=== PATIENT | female | born 2000 | race Asian ===

== ENCOUNTER 2023-10-20 19:49 | Inpatient (IN) ==
--- NOTE | 2023-10-20 20:57 | Emergency Department Note ---
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 She believes that she has undiagnosed ADHD and bipolar. She has trouble focusing on things. She has trouble sleeping. She is only slept 2 hours in the past 48. Prior to that she had slept about 5 hours. She denies any headache or change in vision. No chest pain or shortness of breath. She denies any auditory hallucinations but notes that she does talk to herself sometimes intentionally has done this all of her life. She is getting work done and meeting the requirements per the [employer] Additional history was obtained by her professor at bedside who confirms that she is getting her materials done for school. She does believe that sometimes life is cyclical and does not know if it is worth living. She currently denies any thoughts when to harm yourself or harm anyone else. ADDITIONAL HISTORY OBTAINED: Per HPI Chronic Medical/Social Conditions Affecting Care: Per HPI PAST MEDICAL HISTORY:See Below PAST SURGICAL HISTORY:See Below FAMILY HISTORY:See Below SOCIAL HISTORY:See Below HOME MEDICATIONS:See Below ALLERGIES:See Below VITALS:See Below PHYSICAL EXAMINATION: GENERAL: Sitting up in bed, alert, well appearing, well nourished, no distress, non-toxic EYE EXAM: normal conjunctiva. PERRL and EOM's grossly intact. OROPHARYNX:mucous membranes are moist NECK: supple, no nuchal rigidity, no adenopathy, non-tender LUNGS: Clear to auscultation. Normal chest wall mechanics HEART: no murmurs, S1 normal and S2 normal ABDOMEN: abdomen soft, non-tender, normo-active bowel sounds, no masses, no rebound or guarding. BACK: Back is symmetrical on inspection and there is no deformity, no midline tenderness, no CVA tenderness. SKIN: no rashes and no bruising UPPER EXTREMITIES: upper extremities are grossly normal. LOWER EXTREMITIES: No pitting edema. NEURO EXAM: Normal sensorium, cranial nerves II-XII grossly intact, normal speech, no gross weakness of arms, no gross weakness of legs. PSYCH: Denies any suicidal or homicidal ideations but admits to racing thoughts and trouble sleeping. She does admit to completing task at home MEDICAL DECISION MAKING: Patient is a 23-year-old female who presents ER for feeling manic. She notes that she was concerned so consequently came in. Did discuss the patient with the psychiatric pet care worker who was present at bedside professor is present at bedside and assist with history. Blood work was obtained and showed mild leukocytosis 15,000. No significant anemia. BMP along with LFTs bilirubin and TSH was unremarkable. Salicylate acetaminophen and alcohol were negative. Viral panel was negative. Patient admits to racing thoughts. She is having trouble sleeping. She feels as though sometimes life is not worth living. Currently denies any suicidal or homicidal ideations. She is talking with family as well as her professor trying to decide whether she wants to come in or not. No clear grounds for 302 at this time. Patient was signed out to Dr. Ware at change of shift awaiting complete evaluation by her psychiatric care managers. External Records Reviewed: None Consults/Care Managements Discussions: Per [facility] Triage Nursing notes reviewed. Limited review of prior medical records performed Vital Signs: reviewed and remarkable for no significant abnormalities Differential diagnosis: Mood disorder, infection, hypoglycemia, electrolyte abnormalities, cardiac sources, intracerebral event, toxicologic, trauma, neurologic, as well as other pathologies. ER treatment provided: See below Diagnostics interpreted by me include EKG and cardiac monitoring as listed below: -ECG: none -Laboratory studies:Interpreted by me as stated above in MDM and shown below. Imaging studies: Xrays: As interpreted by me:none CTs show: none Procedures:none Critical Care: None Past Med/Surg History Medical History No pertinent past medical history Social History Smoking Status: Never smoker Feels Safe at Home: Hesitant to Answer Gender Identity: Female Results & Data (ED) Vital Signs Vital Signs - 24 hr 10/20/23 19:56 Temperature 36.1 C L Temperature Source Temporal Artery Scan Pulse Rate 88 Respiratory Rate 16 Respiratory Effort / Characteristics Non-Labored Spontaneous Respiratory Depth Normal Blood Pressure 135/95 Blood Pressure Mean 108 Blood Pressure Position Sitting Pulse Oximetry 97 Oxygen Delivery Method Room Air Sepsis Recent Fever Within 48 Hours No Sepsis New/Unexplained Change in Mental Status N/A Sepsis Action Taken by Nursing No Action Required Laboratory Data 10/20/23 20:34 10/20/23 20:34 Lab Results 10/20/23 Range/Units 20:34 WBC 15.58 H (4.8-10.8) K/ul RBC 4.83 (4.20-5.40) M/uL Hgb 14.3 (12.0-16.0) g/dl Hct 42.1 (37.0-47.0) % MCV 87.2 (80.0-100.0) fL MCH 29.6 (25.0-34.0) pg MCHC 34.0 (32.0-36.0) g/dL RDW Std Deviation 38.5 (36.4-46.3) fL RDW Coeff of Divine 12.1 (11.5-14.5) % Plt Count 388 (130-400) K/uL MPV 9.1 L (9.4-12.4) fL Immature Gran % (Auto) 0.6 % Neut % (Auto) 74.9 % Lymph % (Auto) 17.0 % [place] % (Auto) 6.8 % Eos % (Auto) 0.3 % Baso % (Auto) 0.4 % Neut # (Auto) 11.67 H (1.40-6.50) K/uL Lymph # (Auto) 2.65 (1.20-3.40) K/uL [place] # (Auto) 1.06 H (0.11-0.59) K/uL Eos # (Auto) 0.05 (0.00-0.50) K/uL Baso # (Auto) 0.06 (0.00-0.20) K/uL Immature Gran # (Auto) 0.09 (0.01-0.20) K/uL Sodium 139 (136-145) mmol/L Potassium 3.6 (3.5-5.1) mmol/L Chloride 107 (98-107) mmol/L Carbon Dioxide 24 (21-32) mmol/L Anion Gap 8 (3-11) BUN 12 (6-23) mg/dl Creatinine 0.65 (0.6-1.2) mg/dl Est Cr Clr Drug Dosing 130.9 ml/min Est GFR ( Amer) 145.0 ml/min Est GFR (Non-Af Amer) 125.1 ml/min BUN/Creatinine Ratio 18.5 (10-20) Glucose 105 H (70-99(Fasting)) mg/dl Calcium 9.6 (8.6-10.3) mg/dl Total Bilirubin 0.3 (0.2-1.0) mg/dl AST 15 (13-39) U/L ALT 6 L (7-52) U/L Alkaline Phosphatase 61 (34-104) U/L Total Protein 8.2 (6.0-8.3) gm/dl Albumin 4.7 (3.4-5.0) gm/dl Globulin 3.5 (2.5-4.0) gm/dl Albumin/Globulin Ratio 1.3 (0.9-2) TSH 2.952 (0.300-4.500) uIu/ml Salicylates < 3.0 L (3.0-30) mg/dl Acetaminophen < 3 L (10-30) ug/ml Ethyl Alcohol mg/dL < 10.0 (<10.0) mg/dl Adenovirus (PCR) Not Detected (NotDetected) B. pertussis DNA (PCR) Not Detected (NotDetected) B.parapertussis DNA PCR Not Detected (NotDetected) C. pneumoniae DNA (PCR) Not Detected (NotDetected) Coronavirus OC43 (PCR) Not Detected (NotDetected) Coronavirus HKU1 (PCR) Not Detected (NotDetected) Coronavirus 229E (PCR) Not Detected (NotDetected) SARS-CoV-2 (PCR) Not Detected (NotDetected) Coronavirus NL63 (PCR) Not Detected (NotDetected) Human Metapneumovir PCR Not Detected (NotDetected) Influenza Type A (PCR) Not Detected (NotDetected) Influenza Type B (PCR) Not Detected (NotDetected) M. pneumoniae (PCR) Not Detected (NotDetected) Parainfluenza 1 (PCR) Not Detected (NotDetected) Parainfluenza 2 (PCR) Not Detected (NotDetected) Parainfluenza 3 (PCR) Not Detected (NotDetected) Parainfluenza 4 (PCR) Not Detected (NotDetected) RSV (PCR) Not Detected (NotDetected) Entero/Rhino (PCR) Not Detected (NotDetected) Discharge Plan Visit Data Chief Complaint: Mental Health Evaluation Stated Complaint: Mental Health Evaluation ED Provider: Elias Tovar Discharge Problem: Mood disorder Forms Stand Alone Forms: [facility], Suicide Prevention Resources Referrals [facility] [Primary Care Provider] -
[2023-10-20 21:06] LABS: Albumin Globulin Ratio 1.3 (0.9-2); Albumin Level 4.7 gm/dl (3.4-5.0); BUN Creatinine Ratio 18.5 (10-20); Bilirubin,Total 0.3 mg/dl (0.2-1.0); Calcium 9.6 mg/dl (8.6-10.3); Creatinine Clr Calc Pharmacy 130.9 ml/min; Est GFR (Non-African American) 125.1 ml/min; Globulin 3.5 gm/dl (2.5-4.0); Potassium 3.6 mmol/L (3.5-5.1); Total Protein 8.2 gm/dl (6.0-8.3)
[2023-10-20 21:12] LABS: Basophils # (auto) 0.06 K/uL (0.00-0.20); Basophils % (auto) 0.4 %; Eosinophils # (auto) 0.05 K/uL (0.00-0.50); Eosinophils % (auto) 0.3 %; Hematocrit (blood only) 42.1 % (37.0-47.0); Hemoglobin 14.3 g/dl (12.0-16.0); Immature Granulocytes # (auto) 0.09 K/uL (0.01-0.20); Immature Granulocytes % (auto) 0.6 %; Lymphocytes # (auto) 2.65 K/uL (1.20-3.40); Mean Corpuscular Hemoglobin 29.6 pg (25.0-34.0); Mean Corpuscular Volume 87.2 fL (80.0-100.0); Mean Platelet Volume 9.1 fL (9.4-12.4); Monocytes # (auto) 1.06 K/uL (0.11-0.59); Monocytes % (auto) 6.8 %; Neutrophils # (auto) 11.67 K/uL (1.40-6.50); Neutrophils % (auto) 74.9 %; Platelet Count 388 K/uL (130-400); RDW Coefficient of Variation 12.1 % (11.5-14.5); RDW Standard Deviation 38.5 fL (36.4-46.3); Red Blood Count 4.83 M/uL (4.20-5.40); White Blood Count 15.58 K/ul (4.8-10.8)
[2023-10-20 21:18] LABS: Acetaminophen < 3 ug/ml (10-30); Salicylate < 3.0 mg/dl (3.0-30)
[2023-10-20 21:21] LABS: Thyroid Stimulating Hormone 2.952 uIu/ml (0.300-4.500)
[2023-10-20 21:43] LABS: Adenovirus PCR Not Detected (NotDetected); Bordetella parapertussis PCR Not Detected (NotDetected); Bordetella pertussis PCR Not Detected (NotDetected); Chlamydia pneumoniae PCR Not Detected (NotDetected); Coronavirus 229E PCR Not Detected (NotDetected); Coronavirus CoV-2 (COVID19)PCR Not Detected (NotDetected); Coronavirus HKU1 PCR Not Detected (NotDetected); Coronavirus NL63 PCR Not Detected (NotDetected); Coronavirus OC43PCR Not Detected (NotDetected); Human Metapneumovirus PCR Not Detected (NotDetected); Influenza A PCR Not Detected (NotDetected); Influenza B PCR Not Detected (NotDetected); Mycoplasma pneumoniae PCR Not Detected (NotDetected); Parainfluenza Virus 1 PCR Not Detected (NotDetected); Parainfluenza Virus 2 PCR Not Detected (NotDetected); Parainfluenza Virus 3 PCR Not Detected (NotDetected); Parainfluenza Virus 4 PCR Not Detected (NotDetected); Respiratory Syncytial VirusPCR Not Detected (NotDetected); Rhinovirus/Enterovirus PCR Not Detected (NotDetected)
[2023-10-21 00:18] LABS: Appearance Urine Clear (Clear); Bilirubin Urine Negative (Negative); Blood Urine Negative (Negative); Color Urine Yellow; Glucose Urine UA Negative (Negative); Ketones Urine Trace (Negative); Leukocyte Esterase Urine Negative (Negative); Nitrite Urine Negative (Negative); Protein Urine Negative (Negative); Specific Gravity Urine 1.033 (1.000-1.030); Urobilinogen Urine Negative (Negative); pH Urine 5.5 (4.5-7.5)
[2023-10-21 00:38] LABS: Amphetamines+Metham, Urine Neg (Neg); Barbiturates, Urine Neg (Neg); Benzodiazepine, Urine Neg (Neg); Cocaine, Urine Neg (Neg); MDMA (Ecstacy), Urine Neg (Neg); Marijuana, Urine Neg (Neg); Methadone, Urine Neg (Neg); Opiate, Urine Neg (Neg); Phencyclidine, Urine Neg (Neg)
[2023-10-21] MEDS ORDERED: ACETAMINOPHEN 325 MG TAB PO PRN (03:03)
[2023-10-21] MEDS ORDERED: ALUMINUM/MAGNESIUM SUSP 30 ML UDC PO PRN (03:03)
[2023-10-21] MEDS ORDERED: SODIUM CHLORIDE 0.65% NA SOLN 45 ML (OCEAN) PRN (03:03)
[2023-10-21] MEDS ORDERED: BISMUTH SUBSALICYLATE LIQD 236 ML PO PRN (03:03)
[2023-10-21] MEDS ORDERED: hydrOXYzine HCl 25 MG TAB PO PRN (03:03)
[2023-10-21] MEDS ORDERED: MAGNESIUM HYDROXIDE SUSP 30 ML UDC PO PRN (03:03)
[2023-10-21] MEDS ORDERED: QUEtiapine FUMARATE 25 MG TABLET PO ONE (03:06)
[2023-10-21] MEDS: QUEtiapine FUMARATE 25 MG TABLET PO PRN (08:46)
--- NOTE | 2023-10-21 12:09 | History & Physical ---
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 There appears to be no previous history suggestive of gabe prior to this episode. She is certainly psychotic and I can't entirely rule out a primary psychotic disorder, but the presentation is very consistent with severe gabe with psychotic features. She presented seeking treatment for self-diagnosed bipolar disorder and appears at the time she signed herself in to have the capacity to make a rational and informed decision about admission. With the subsequent degree of escalation, this may no longer be the case. If she were to demand discharge at this time she would in my opinion clearly meet criteria for section 302 involuntary emergency psychiatric admission. Will start divalproex as mood stabilizer likely to be appropriate over the chcf, titrate to 1,500 mg/day before checking trough level and further adjustment as needed to achieve blood level in 85-125 ug/mL range. In light of clear need for faster-onset mood stabilization with start risperidone ODT 1 mg TID. Due to evidence of rapid escalation, will provide IM haloperidol 5 mg, lorazepam 2 mg, and diphenhydramine 50 mg Q6H PRN psychosis or gabe. Overall I spent a total of 78 minutes on the floor for this admission including review of chart records, review of test results, direct evaluation of the patient [id number], reconciling and ordering medication, risk assessment, discussion during interdisciplinary treatment rounds, and documentation in the electronic health record. (1) Bipolar disorder, current episode manic, severe with psychotic features: Plan The patient was admitted to the [facility] ([facility] unit) on q15 minute checks (behavioral with suicide precautions) for safety.The patient will participate in group, recreational, and milieu therapies and will be offered additional individual and family sessions as clinically appropriate. * A private room is medically necessary for the safety of self and others. * start divalproex 500 mg once today, BID tomorrow, TID following day * start risperidone ODT 1 mg TID * for gabe or psychosis haloperidol 5 mg IM, lorazepam 2 mg IM, and diphenhydramine 50 mg IM Q6H PRN gabe or psychosis Inventory Assets Strengths: has local supports, voluntary, attending classes Needs: safety and stabilization, medication adjustment, additional coping skills, increased outpatient services Suicide Risk Level Suicide Risk Level: High-Moderate (q15 min suicide checks) (no suicidal thoughts reported but very manic with psychosis, poor impulse control, psychomotor agitation) Risk Factors Assessment Male: No : No Do You Have Access To A Gun?: No Health Problems: No Mental Health Diagnoses: Yes Previous Attempt: No Previous Psychiatric Hospitalization: No Protective Factors Assessment : No Responsible for Young Children: No Employed: No Psychiatric History Identifying Data BRIELLE ORTIZ is a 23-year-old F who currently lives in [place] alone, has a history of depression, and was admitted on 10/21/23 02:24 on a 201 voluntary commitment for gabe. Chief Complaint "Are you Professor Arriaza?". 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 She believes that she has undiagnosed ADHD and bipolar. She has trouble focusing on things. She has trouble sleeping. She is only slept 2 hours in the past 48. Prior to that she had slept about 5 hours. She denies any headache or change in vision. No chest pain or shortness of breath. She denies any auditory hallucinations but notes that she does talk to herself sometimes intentionally has done this all of her life. She is getting work done and meeting the requirements per the [employer]. Additional history was obtained by her professor at bedside who confirms that she is getting her materials done for school. She does believe that sometimes life is cyclical and does not know if it is worth living. She currently denies any thoughts when to harm yourself or harm anyone else." the following notes by the ED psychiatric patient case coordinator: "Pt denies SI. States she had thoughts tonight that in the broader context of the universe it would not matter if she lived or . Pt denied any intent or plan behind these thoughts. States she feels as though she is undiagnosed with ADHD and Bipolar Disorder. Reports inconsistent sleep the past few days, with two or three hours yesterday and four or five hours the day before that. Pt endorses racing thoughts and photo sensitivity which has increased her stress. Pt is mildly tangential. 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 Advisor states she has been keeping up with her responsibilities." "Met with pt to complete MH assessment. Pt requests her PhD advisor, José Luis, stay in the room. Pt remains somewhat tangential with flight of ideas. Pt required some redirection to answer questions appropriately but stayed pleasant and cooperative throughout. Pt states she does experience rare SI that typically follows coming off a high period. She frequently strays off topic to discuss AI singularities, connections, and patterns in the Universe. Pt did ask this CM if I saw evidence of a singularity in her. Pt also stated that she believes she is so calm that her brain waves will mimic those of someone currently asleep. Pt also stated that she was having issues with photosensitivity and kept her eyes covered. However, later in the assessment pt was able to look at this CM without difficulty. Pt states that she was taking Lexapro until 2 days ago but stopped because she did not feel as though she needed it. Pts prescriber is in [place]. She denies self-injury. Denies HI. Denies AH/VH. Denies a history of inpatient treatment. Denies prior suicide attempts. 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 Pt willing for voluntary treatment (201). Lives in an apartment by herself off campus. Pt states to liaison she has active SI. Pt denies specific thoughts or plan. States she does not feel safe with herself at her apartment. States stressor is times where she is alone. Pt states having continuous SI but it "fluctuates." Pt denying SIB/HI/halluc/delus. Reports SIB in past like cutting and hitting self but has not done so in past 1+ year. Grandiose and manic behaviors. Pt. having racing thoughts. Tangential and flight of ideas. Asking questions about the universe. Often needs redirection when answering questions. Pleasant and cooperative during conversation. Denies previous inpt stays. Stopped taking Lexapro 2 days ago. Lexapro 5mg po daily. Prescriber in [place]. Pt unable to state if she is taking other medications. Pt hinted about taking vitamins but couldn't state which ones. Pt denies hx of medical diagnoses. Denies psych diagnoses but thinks she has undiagnosed ADHD and Bipolar. States sleep has been poor. Appetite has been less but adequate. Denies tobacco, alcohol, other substance use. Denies legal issues. Denies access to firearms/lethal weapons. ROIs signed for Hudson (mother), Nini (father), Royer (aunt), and S." Review of the medical record reveals no previous or outside psychiatric records. Review of pertinent labs reveals they are noncontributory except for leukocytosis. A urine toxicology screen was negative for all tested substrates. BAL was <10 mg/dL. screen was negative. Note history as documented above. Pt is (apparently recently) diagnosed with bipolar disorder, with a history of treatment for major depression (escitalopra m) that she stopped 2 days prior to presentation. She has had increasingly racing thoughts, decreased sleep of 3-5 hours/night. Since presentation to the ED she has become increasingly manic with rapid speech, flight of ideas, and psychomotor agitation. She has been preoccupied with "portals" and has identified as such a toilet (which she blocked with an entire roll of toilet paper) and a mirror (which she was pounding with her hands at the time I tried to assess her). She called 911 on the unit phone to ask them to put her in touch with the prophet Luis. She stripped off all her clothes several times. Because of her rapidly-escalating gabe and the risk of injury from her pounding on the mirror that she believed was a portal, she was offered haloperidol 10 mg IM with lorazepam 2 mg IM and diphenhydramine 50 mg IM. She enthusiastically accepted this and readily went to the open-door quiet room and curled up on the mattress. She rapidly became drowsy and repeatedly asked if I were Professor Arriaza. As a result of this sedation, my assessment was abbreviated. Past Psychiatric History Current Psychiatric Diagnosis: SHERWIN Outpatient Services: had been taking escitalopram prescribed by psychiatrist in [place] Previous Psych Admissions: none Do You Have Access To A Gun?: No History of Previous Suicide Attempt: No Past Medication Trials: escitalopram Allergies Allergy/AdvReac Type Severity Reaction Status Date / Time No Known Allergies Allergy Unverified 10/21/23 01:13 Home Medications Medication Instructions Recorded Confirmed Type escitalopram oxalate 5 mg tablet 5 mg PO DAILY 10/21/23 10/21/23 History (Lexapro) Family History Family History of: Suicide Completion Family Mental Health History Comment: Aunt Alcohol History Hx of Alcohol Use Over the Past 12 Months: No AUDIT Total Score: 0 Smoking Use Have You Smoked or Used Tobacco Products in the Last 30 Days: No Smoking Status: Never smoker Substance History Hx of Prescription Med Misuse Over the Past 12 Months: No Hx of Over the Counter Med Misuse Over the Past 12 Months: No Hx of Inhalent Misuse Over the Past 12 Months: No Hx of Organic Substance Use Over the Past 12 Months: No Hx of Illegal Substances/Street Drug Use Over Past 12 Months: No Problems as a Result of Past Substance Use: None Identified Personal History Living Arrangements: Apartment Beliefs That Will Affect Care: None Patient History Medical History (Updated 10/21/23 @ 20:15 by Mckinley Seay MD) Bipolar disorder, current episode manic, severe with psychotic features No pertinent past medical history Social History Smoking Status: Never smoker Communication Ability: Effective Automatic Cigar Wrapper Tender Required: No Beliefs That Will Affect Care: None Feels Safe at Home: Hesitant to Answer Gender Identity: Female Assistive Devices: Glasses Physical Exam Psychiatric: At the time I began my assessment, pt was pacing her room stripping off her clothes and saying that her mirror was a portal while pounding it with her fists. She responded to her name but her responses to orientation questions were nonsensical. Because of the escalating injury risk she was given IM medication (which she was very happy to take) and rapidly became sedated. Vital Signs (Past 24 Hours): Last Vital Signs Temp 36.6 C 10/21/23 03:50 Pulse 89 10/21/23 03:50 Resp 18 10/21/23 03:50 BP 128/87 10/21/23 03:50 Pulse Ox 98 10/21/23 03:50 O2 Del Method Room Air 10/21/23 03:50 Results & Data ([facility]) Laboratory Results Laboratory Results - last 24 hr 10/20/23 10/21/23 10/21/23 20:34 00:12 00:34 WBC 15.58 H RBC 4.83 Hgb 14.3 Hct 42.1 MCV 87.2 MCH 29.6 MCHC 34.0 RDW Std Deviation 38.5 RDW Coeff of Divine 12.1 Plt Count 388 MPV 9.1 L Immature Gran % (Auto) 0.6 Neut % (Auto) 74.9 Lymph % (Auto) 17.0 [place] % (Auto) 6.8 Eos % (Auto) 0.3 Baso % (Auto) 0.4 Neut # (Auto) 11.67 H Lymph # (Auto) 2.65 [place] # (Auto) 1.06 H Eos # (Auto) 0.05 Baso # (Auto) 0.06 Immature Gran # (Auto) 0.09 Sodium 139 Potassium 3.6 Chloride 107 Carbon Dioxide 24 Anion Gap 8 BUN 12 Creatinine 0.65 Est Cr Clr Drug Dosing 130.9 Est GFR ( Amer) 145.0 Est GFR (Non-Af Amer) 125.1 BUN/Creatinine Ratio 18.5 Glucose 105 H Calcium 9.6 Total Bilirubin 0.3 AST 15 ALT 6 L Alkaline Phosphatase 61 Total Protein 8.2 Albumin 4.7 Globulin 3.5 Albumin/Globulin Ratio 1.3 TSH 2.952 Urine Color Yellow Urine Appearance Clear Urine pH 5.5 Ur Specific [place] 1.033 H Urine Protein Negative Urine Glucose (UA) Negative Urine Ketones Trace H Urine Blood Negative Urine Nitrite Negative Urine Bilirubin Negative Urine Urobilinogen Negative Ur Leukocyte Esterase Negative POC Ur Test Salicylates < 3.0 L Urine Opiates Screen Neg Ur Methadone, Qual Neg Acetaminophen < 3 L Urine Barbiturates Neg Ur Phencyclidine (PCP) Neg U Amphetamin/Meth Scrn Neg MDMA (Ecstasy) Screen Neg U Benzodiazepines Scrn Neg Ur Cocaine Metabolite Neg U Marijuana (THC) Screen Neg Ethyl Alcohol mg/dL < 10.0 Adenovirus (PCR) Not Detected B. pertussis DNA (PCR) Not Detected B.parapertussis DNA PCR Not Detected C. pneumoniae DNA (PCR) Not Detected Coronavirus OC43 (PCR) Not Detected Coronavirus HKU1 (PCR) Not Detected Coronavirus 229E (PCR) Not Detected SARS-CoV-2 (PCR) Not Detected Coronavirus NL63 (PCR) Not Detected Human Metapneumovir PCR Not Detected Influenza Type A (PCR) Not Detected Influenza Type B (PCR) Not Detected M. pneumoniae (PCR) Not Detected Parainfluenza 1 (PCR) Not Detected Parainfluenza 2 (PCR) Not Detected Parainfluenza 3 (PCR) Not Detected Parainfluenza 4 (PCR) Not Detected RSV (PCR) Not Detected Entero/Rhino (PCR) Not Detected SARS-CoV-2, RNA, NAAT NEGATIVE 10/21/23 00:36 WBC RBC Hgb Hct MCV MCH MCHC RDW Std Deviation RDW Coeff of Divine Plt Count MPV Immature Gran % (Auto) Neut % (Auto) Lymph % (Auto) [place] % (Auto) Eos % (Auto) Baso % (Auto) Neut # (Auto) Lymph # (Auto) [place] # (Auto) Eos # (Auto) Baso # (Auto) Immature Gran # (Auto) Sodium Potassium Chloride Carbon Dioxide Anion Gap BUN Creatinine Est Cr Clr Drug Dosing Est GFR ( Amer) Est GFR (Non-Af Amer) BUN/Creatinine Ratio Glucose Calcium Total Bilirubin AST ALT Alkaline Phosphatase Total Protein Albumin Globulin Albumin/Globulin Ratio TSH Urine Color Urine Appearance Urine pH Ur Specific [place] Urine Protein Urine Glucose (UA) Urine Ketones Urine Blood Urine Nitrite Urine Bilirubin Urine Urobilinogen Ur Leukocyte Esterase POC Ur Test NEG Salicylates Urine Opiates Screen Ur Methadone, Qual Acetaminophen Urine Barbiturates Ur Phencyclidine (PCP) U Amphetamin/Meth Scrn MDMA (Ecstasy) Screen U Benzodiazepines Scrn Ur Cocaine Metabolite U Marijuana (THC) Screen Ethyl Alcohol mg/dL Adenovirus (PCR) B. pertussis DNA (PCR) B.parapertussis DNA PCR C. pneumoniae DNA (PCR) Coronavirus OC43 (PCR) Coronavirus HKU1 (PCR) Coronavirus 229E (PCR) SARS-CoV-2 (PCR) Coronavirus NL63 (PCR) Human Metapneumovir PCR Influenza Type A (PCR) Influenza Type B (PCR) M. pneumoniae (PCR) Parainfluenza 1 (PCR) Parainfluenza 2 (PCR) Parainfluenza 3 (PCR) Parainfluenza 4 (PCR) RSV (PCR) Entero/Rhino (PCR) SARS-CoV-2, RNA, NAAT Current Inpatient Medications Current Inpatient Medications: Current Inpatient Medications Acetaminophen (Acetaminophen 325 Mg Tab) 650 mg PO Q4H PRN PRN Reason: Headache or Minor Fever Stop: 11/20/23 03:02 Al Hydrox/Mg Hydrox/Simethicone (Aluminum/Magnesium Susp 30 Ml Udc) 30 ml PO Q4H PRN PRN Reason: GI Upset Stop: 11/20/23 03:02 Bismuth Subsalicylate (Bismuth Subsalicylate Liqd 236 Ml) 15 ml PO PRN PRN PRN Reason: Loose Stool Stop: 11/20/23 03:02 Hydroxyzine HCl (Hydroxyzine Hcl 25 Mg Tab) 50 mg PO HSZ PRN PRN Reason: Insomnia Stop: 11/20/23 03:02 Hydroxyzine HCl (Hydroxyzine Hcl 25 Mg Tab) 25 mg PO Q4H PRN PRN Reason: Anxiety Stop: 11/20/23 03:02 Magnesium Hydroxide (Magnesium Hydroxide Susp 30 Ml Udc) 30 ml PO DAILY PRN PRN Reason: Constipation Stop: 11/20/23 03:02 Quetiapine Fumarate (Quetiapine Fumarate 25 Mg Tablet) 50 mg PO Q6 PRN PRN Reason: gabe/psychosis Stop: 11/20/23 05:59 Last Admin: 10/21/23 08:46 Dose: 50 mg Sodium Chloride (Sodium Chloride 0.65% Na Soln 45 Ml ([place])) 1 - 2 sprays NA PRN PRN PRN Reason: Nasal Dryness/Congestion Stop: 11/20/23 03:02
[2023-10-21] MEDS ORDERED: HALOPERIDOL LACTATE 5 MG/ML 1 ML VIAL IM STA (14:01)
[2023-10-21] MEDS ORDERED: diphenhydrAMINE 50 MG/ML VIAL IM STA (14:02)
[2023-10-21] MEDS ORDERED: LORazepam 2 MG/1 ML VIAL IM STA (14:03)
[2023-10-21] MEDS ORDERED: diphenhydrAMINE 50 MG/ML VIAL IM PRN (20:22)
[2023-10-21] MEDS ORDERED: LORazepam 2 MG/1 ML VIAL IM PRN (20:22)
[2023-10-21] MEDS ORDERED: HALOPERIDOL LACTATE 5 MG/ML 1 ML VIAL IM PRN (20:22)
[2023-10-21] MEDS: DIVALPROEX DELAY RELEASE 500 MG TAB PO SCH (21:29)
[2023-10-22] MEDS: DIVALPROEX DELAY RELEASE 500 MG TAB PO SCH ×2 (10:24→20:26)
--- NOTE | 2023-10-22 13:56 | Psychiatric Progress Note ---
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 There appears to be no previous history suggestive of gabe prior to this episode. She is certainly psychotic and I can't entirely rule out a primary psychotic disorder, but the presentation is very consistent with severe gabe with psychotic features. She presented seeking treatment for self-diagnosed bipolar disorder and appears at the time she signed herself in to have the capacity to make a rational and informed decision about admission. With the subsequent degree of escalation, this may no longer be the case. If she were to demand discharge at this time she would in my opinion clearly meet criteria for section 302 involuntary emergency psychiatric admission. 10/22/2023: Slept much of the time since given IM medication yesterday afternoon. When awake, reported manic, grandiose delusions as well as less clearly-manic and more persecutory beliefs (e.g., in "portals" that somehow pose a risk and must be incapacitated). Initially refused ordered medication this morning but eventually did agree to take them. Tells me that she has had previous somewhat similar but less serious episodes of elevated mood, "jumping thoughts that go 1,000 miles an hour", impulsive behavior, and "masturbating in public" (which she commends as a useful intervention when distracted or anxious). 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 She acknowledges that some of her thoughts "have been crazy". Says her hesitation about medication is because she doesn't "want it all to be taken away". 10/21/2023: Will start divalproex as mood stabilizer likely to be appropriate over the vermin exterminator, titrate to 1,500 mg/day before checking trough level and further adjustment as needed to achieve blood level in 85-125 ug/mL range. In light of clear need for faster-onset mood stabilization with start risperidone ODT 1 mg TID. Due to evidence of rapid escalation, will provide IM haloperidol 5 mg, lorazepam 2 mg, and diphenhydramine 50 mg Q6H PRN psychosis or gabe. (1) Bipolar disorder, current episode manic, severe with psychotic features: Plan 10/22/2023: * A private room remains medically necessary for the safety of self and others. * increase divalproex to 500 mg BID today, TID tomorrow - started 10/21/2023 at 500 mg once daily * continue risperidone ODT 1 mg TID - started 10/21/2023 * for gabe or psychosis, continue haloperidol 5 mg IM, lorazepam 2 mg IM, and diphenhydramine 50 mg IM Q6H PRN gabe or psychosis 10/21/2023: The patient was admitted to the [facility] ([facility]) on q15 minute checks (behavioral with suicide precautions) for safety.The patient will participate in group, recreational, and milieu therapies and will be offered additional individual and family sessions as clinically appropriate. * A private room is medically necessary for the safety of self and others. * start divalproex 500 mg once today, BID tomorrow, TID following day * start risperidone ODT 1 mg TID * for gabe or psychosis haloperidol 5 mg IM, lorazepam 2 mg IM, and diphenhydramine 50 mg IM Q6H PRN gabe or psychosis Inventory Assets Strengths: has local supports, voluntary, attending classes Needs: safety and stabilization, medication adjustment, additional coping skills, increased outpatient services Suicide Risk Level Suicide Risk Level: High-Moderate (q15 min suicide checks) (no suicidal thoughts reported but very manic with psychosis, poor impulse control, psychomotor agitation) Risk Factors Assessment Male: No : No Do You Have Access To A Gun?: No Health Problems: No Mental Health Diagnoses: Yes Previous Attempt: No Previous Psychiatric Hospitalization: No Protective Factors Assessment : No Responsible for Young Children: No Employed: No Interval History Identifying Information BRIELLE ORTZI (ASTORIA) is a 23-year-old F who currently lives in [place] alone, has a history of depression, and was admitted on 10/21/23 02:24 on a 201 voluntary commitment for gabe. Chief Complaint "[]". Review of Systems Sleep Information Total Hours of Sleep: 11 Sleep Comments: Pt given PRN IM medications earlier in the day, awake x 2 and currently asleep in room Meal Information Percent Meal Consumed - Breakfast: 100 Percent Meal Consumed - Lunch: 90 Percent Meal Consumed - Dinner: 0 Nutrition Comment: pt asleep Subjective Subjective The patient was seen and assessed and interval progress reviewed in a multidisciplinary team meeting with the treatment team. For details, see the "Impression" section. Overall I spent a total of 48 minutes for this inpatient follow-up including review of chart records, direct evaluation of the patient [id number], counseling the patient, medication education with the patient, risk assessment, discussion during interdisciplinary treatment rounds, and documentation in the electronic health record. Physical Exam Vital Signs (Past 24 Hours) Last Vital Signs Temp 36.6 C 10/21/23 03:50 Pulse 89 10/21/23 03:50 Resp 18 10/21/23 03:50 BP 128/87 10/21/23 03:50 Pulse Ox 98 10/21/23 03:50 O2 Del Method Room Air 10/21/23 03:50 Results & Data (U) Current Inpatient Medications Current Inpatient Medications: Current Inpatient Medications Acetaminophen (Acetaminophen 325 Mg Tab) 650 mg PO Q4H PRN PRN Reason: Headache or Minor Fever Stop: 11/20/23 03:02 Al Hydrox/Mg Hydrox/Simethicone (Aluminum/Magnesium Susp 30 Ml Udc) 30 ml PO Q4H PRN PRN Reason: GI Upset Stop: 11/20/23 03:02 Bismuth Subsalicylate (Bismuth Subsalicylate Liqd 236 Ml) 15 ml PO PRN PRN PRN Reason: Loose Stool Stop: 11/20/23 03:02 Diphenhydramine HCl (Diphenhydramine 50 Mg/Ml Vial) 50 mg IM Q8 PRN PRN Reason: gabe Stop: 11/20/23 20:21 Divalproex Sodium (Divalproex Delay Release 500 Mg Tab) 500 mg PO BID LOVE Stop: 11/20/23 20:59 Last Admin: 10/22/23 10:24 Dose: 500 mg Haloperidol Lactate (Haloperidol Lactate 5 Mg/Ml 1 Ml Vial) 5 mg IM Q6 PRN PRN Reason: psychosis or gabe Stop: 11/20/23 20:21 Hydroxyzine HCl (Hydroxyzine Hcl 25 Mg Tab) 50 mg PO HSZ PRN PRN Reason: Insomnia Stop: 11/20/23 03:02 Hydroxyzine HCl (Hydroxyzine Hcl 25 Mg Tab) 25 mg PO Q4H PRN PRN Reason: Anxiety Stop: 11/20/23 03:02 Lorazepam (Lorazepam 2 Mg/1 Ml Vial) 2 mg IM Q6 PRN PRN Reason: gabe Stop: 11/20/23 20:21 Magnesium Hydroxide (Magnesium Hydroxide Susp 30 Ml Udc) 30 ml PO DAILY PRN PRN Reason: Constipation Stop: 11/20/23 03:02 Quetiapine Fumarate (Quetiapine Fumarate 25 Mg Tablet) 50 mg PO Q6 PRN PRN Reason: gabe/psychosis Stop: 11/20/23 05:59 Last Admin: 10/21/23 08:46 Dose: 50 mg Risperidone (Risperidone Odt 1mg) 1 mg PO TID LOVE Stop: 11/20/23 20:59 Last Admin: 10/22/23 10:24 Dose: 1 mg Sodium Chloride (Sodium Chloride 0.65% Na Soln 45 Ml ([place])) 1 - 2 sprays NA PRN PRN PRN Reason: Nasal Dryness/Congestion Stop: 11/20/23 03:02 Mental Health & Subst Abuse Tx Therapist Name of Therapist: ТАТЬЯНА Lung Splitter Name of Lung Splitter: Carol Cueva @ [facility]? Post Discharge Appointments Primary Care Physician Name Of Family Doctor/PCP: NAZARIO
[2023-10-23] MEDS: DIVALPROEX DELAY RELEASE 500 MG TAB PO SCH (08:33)
--- NOTE | 2023-10-23 10:40 | Psychiatric Progress Note ---
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 There appears to be no previous history suggestive of gabe prior to this episode. She is certainly psychotic and I can't entirely rule out a primary psychotic disorder, but the presentation is very consistent with severe gabe with psychotic features. She presented seeking treatment for self-diagnosed bipolar disorder and appears at the time she signed herself in to have the capacity to make a rational and informed decision about admission. With the subsequent degree of escalation, this may no longer be the case. Accumulating evidence suggestive of ADHD (running around classrooms as a kid) or ASD (hypersensitivity to light, certain sounds, "VOCs", use of masturbation when distressed. 10/23/2023: Substantial improvement. Pt has been speaking about feeling embarrassed about some of the things she did and said while more manic (oddly apologizing for calling a nurse "an sarah" and for asking me if I were "Dumbledore"). She slept 8 hours last night with no additional medication. Shortly before I saw pt today she inadvertently flooded the floor while showering. Staff are completely confident this was unintentional and resulted from her unfamiliarity with the shower layout. She was mortified and became very anxious and was given PRN quetiapine. Over the course of my exam she gradually became somnolent. However, for most of the time she was reasonably well-focused and able to participate in the exam. She says she has been tolerating both the divalproex as its dose has been titrated and the risperidone well and doesn't attribute any side effects to either. She does attribute to them a great deal of improvement - "my mind isn't jumping", e.g. She thinks the quetiapine has been sedating (which is evident) but that it has been very helpful for anxiety. 10/22/2023: Slept much of the time since given IM medication yesterday afternoon. When awake, reported manic, grandiose delusions as well as less clearly-manic and more persecutory beliefs (e.g., in "portals" that somehow pose a risk and must be incapacitated). Initially refused ordered medication this morning but eventually did agree to take them. Tells me that she has had previous somewhat similar but less serious episodes of elevated mood, "jumping thoughts that go 1,000 miles an hour", impulsive behavior, and "masturbating in public" (which she commends as a useful intervention when distracted or anxious). 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 She acknowledges that some of her thoughts "have been crazy". Says her hesitation about medication is because she doesn't "want it all to be taken away". 10/21/2023: Will start divalproex as mood stabilizer likely to be appropriate over the nursing home, titrate to 1,500 mg/day before checking trough level and further adjustment as needed to achieve blood level in 85-125 ug/mL range. In light of clear need for faster-onset mood stabilization with start risperidone ODT 1 mg TID. Due to evidence of rapid escalation, will provide IM haloperidol 5 mg, lorazepam 2 mg, and diphenhydramine 50 mg Q6H PRN psychosis or gabe. (1) Bipolar disorder, current episode manic, severe with psychotic features: Plan 10/23/2023: * increase divalproex to 500 mg TID - increased 10/22/2023 to BID, started 10/21/2023 at 500 mg once daily * trough valproate level ordered for 10/26/23 * continue risperidone ODT 1 mg TID - started 10/21/2023 * for gabe or psychosis, continue haloperidol 5 mg IM, lorazepam 2 mg IM, and diphenhydramine 50 mg IM Q6H PRN gabe or psychosis * A private room remains medically necessary for the safety of self and others. 10/22/2023: * A private room remains medically necessary for the safety of self and others. * increase divalproex to 500 mg BID today, TID tomorrow - started 10/21/2023 at 500 mg once daily * continue risperidone ODT 1 mg TID - started 10/21/2023 * for gabe or psychosis, continue haloperidol 5 mg IM, lorazepam 2 mg IM, and diphenhydramine 50 mg IM Q6H PRN gabe or psychosis 10/21/2023: The patient was admitted to the [facility] ([facility] unit) on q15 minute checks (behavioral with suicide precautions) for safety.The patient will participate in group, recreational, and milieu therapies and will be offered additional individual and family sessions as clinically appropriate. * A private room is medically necessary for the safety of self and others. * start divalproex 500 mg once today, BID tomorrow, TID following day * start risperidone ODT 1 mg TID * for gabe or psychosis haloperidol 5 mg IM, lorazepam 2 mg IM, and diphenhydramine 50 mg IM Q6H PRN gabe or psychosis Inventory Assets Strengths: has local supports, voluntary, attending classes Needs: safety and stabilization, medication adjustment, additional coping skills, increased outpatient services Suicide Risk Level Suicide Risk Level: High-Moderate (q15 min suicide checks) (no suicidal thoughts reported but very manic with psychosis, poor impulse control, psychomotor agitation) Risk Factors Assessment Male: No : No Do You Have Access To A Gun?: No Health Problems: No Mental Health Diagnoses: Yes Previous Attempt: No Previous Psychiatric Hospitalization: No Protective Factors Assessment : No Responsible for Young Children: No Employed: No Interval History Identifying Information BRIELLE ORTIZ (ASTORIA) is a 23-year-old F who currently lives in [place] alone, has a history of depression, and was admitted on 10/21/23 02:24 on a 201 voluntary commitment for gabe. Chief Complaint "I can think much more clearly". Review of Systems Sleep Information Total Hours of Sleep: 8 Meal Information Percent Meal Consumed - Breakfast: 100 Percent Meal Consumed - Lunch: 90 Percent Meal Consumed - Dinner: 100 Nutrition Comment: pt asleep Subjective Subjective The patient was seen and assessed and interval progress reviewed in a multidisciplinary team meeting with the treatment team. For details, see the "Impression" section. Overall I spent a total of 52 minutes for this inpatient follow-up including review of chart records, review of test results, direct evaluation of the patient [id number], counseling the patient, reconciling and ordering medication, medication education with the patient, risk assessment, discussion during interdisciplinary treatment rounds, and documentation in the electronic health record. Physical Exam Psychiatric Orientation: alert, oriented to person, oriented to place, oriented to time and cooperative Apperance: appropriately dressed and + disheveled Eye Contact: + fair eye contact Motor Behavior: + psychomotor agitation (restless, fidgety) Speech: normal rate/rhythm/volume of speech (somewhat abbreviated latency of response, prolonged duration); no pressured speech and no loud speech Affect: + anxious affect and + labile affect Mood: + anxious mood Thought Process: + tangential thought process and + flight of ideas Thought Content: + delusions (about cosmic connectedness) Suicidal Thoughts: denies suicidal thoughts, denies suicidal plan and denies suicidal intent Homicidal Thoughts: denies homicidal thoughts Hallucinations: no auditory hallucinations and no visual hallucinations Cognition: recent memory grossly intact, remote memory grossly intact and language grossly intact; + attention not intact (distractible, but improving) Estimated Intelligence: consistent with education level Insight: + limited insight Judgment: + limited judgement Vital Signs (Past 24 Hours) Last Vital Signs Temp 36.7 C 10/23/23 07:01 Pulse 105 H 10/23/23 07:01 Resp 16 10/23/23 07:01 BP 90/67 L 10/23/23 07:02 Pulse Ox 99 10/23/23 07:01 O2 Del Method Room Air 10/23/23 07:01 Results & Data ([facility]) Current Inpatient Medications Current Inpatient Medications: Current Inpatient Medications Acetaminophen (Acetaminophen 325 Mg Tab) 650 mg PO Q4H PRN PRN Reason: Headache or Minor Fever Stop: 11/20/23 03:02 Al Hydrox/Mg Hydrox/Simethicone (Aluminum/Magnesium Susp 30 Ml Udc) 30 ml PO Q4H PRN PRN Reason: GI Upset Stop: 11/20/23 03:02 Bismuth Subsalicylate (Bismuth Subsalicylate Liqd 236 Ml) 15 ml PO PRN PRN PRN Reason: Loose Stool Stop: 11/20/23 03:02 Diphenhydramine HCl (Diphenhydramine 50 Mg/Ml Vial) 50 mg IM Q8 PRN PRN Reason: gabe Stop: 11/20/23 20:21 Divalproex Sodium (Divalproex Delay Release 500 Mg Tab) 500 mg PO BID LOVE Stop: 11/20/23 20:59 Last Admin: 10/23/23 08:33 Dose: 500 mg Haloperidol Lactate (Haloperidol Lactate 5 Mg/Ml 1 Ml Vial) 5 mg IM Q6 PRN PRN Reason: psychosis or gabe Stop: 11/20/23 20:21 Hydroxyzine HCl (Hydroxyzine Hcl 25 Mg Tab) 50 mg PO HSZ PRN PRN Reason: Insomnia Stop: 11/20/23 03:02 Hydroxyzine HCl (Hydroxyzine Hcl 25 Mg Tab) 25 mg PO Q4H PRN PRN Reason: Anxiety Stop: 11/20/23 03:02 Lorazepam (Lorazepam 2 Mg/1 Ml Vial) 2 mg IM Q6 PRN PRN Reason: gabe Stop: 11/20/23 20:21 Magnesium Hydroxide (Magnesium Hydroxide Susp 30 Ml Udc) 30 ml PO DAILY PRN PRN Reason: Constipation Stop: 11/20/23 03:02 Quetiapine Fumarate (Quetiapine Fumarate 25 Mg Tablet) 50 mg PO Q6 PRN PRN Reason: gabe/psychosis Stop: 11/20/23 05:59 Last Admin: 10/21/23 08:46 Dose: 50 mg Risperidone (Risperidone Odt 1mg) 1 mg PO TID LOVE Stop: 11/20/23 20:59 Last Admin: 10/23/23 08:33 Dose: 1 mg Sodium Chloride (Sodium Chloride 0.65% Na Soln 45 Ml ([place])) 1 - 2 sprays NA PRN PRN PRN Reason: Nasal Dryness/Congestion Stop: 11/20/23 03:02 Mental Health & Subst Abuse Tx Therapist Name of Therapist: ТАТЬЯНА Glue Reel Operator Name of Glue Reel Operator: Carol Cueva @ [facility]? Post Discharge Appointments Primary Care Physician Name Of Family Doctor/PCP: Denita
[2023-10-23] MEDS: QUEtiapine FUMARATE 25 MG TABLET PO PRN (11:50)
[2023-10-23] MEDS ORDERED: DIVALPROEX DELAY RELEASE 500 MG TAB PO SCH (14:00)
[2023-10-23] MEDS: DIVALPROEX DELAY RELEASE 250 MG TABEC PO SCH ×2 (14:07→20:53)
[2023-10-24] MEDS: DIVALPROEX DELAY RELEASE 250 MG TABEC PO SCH ×3 (10:14→22:02)
--- NOTE | 2023-10-24 12:21 | Psychiatric Progress Note ---
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 There appears to be no previous history suggestive of gabe prior to this episode. She is certainly psychotic and I can't entirely rule out a primary psychotic disorder, but the presentation is very consistent with severe gabe with psychotic features. She presented seeking treatment for self-diagnosed bipolar disorder and appears at the time she signed herself in to have the capacity to make a rational and informed decision about admission. With the subsequent degree of escalation, this may no longer be the case. Accumulating evidence suggestive of ADHD (running around classrooms as a kid) or ASD (hypersensitivity to light, certain sounds, "VOCs", use of masturbation when distressed. 10/24/2023: Yesterday evening pt complained of "thick tongue". I was still in the facility and was able to see her. I was unable to detect any dystonia. She full, supple range of motion of neck. Extraocular movements were not limited. She had no stiffness of her jaw nor any difficulty moving it. She did gag each time I asked her to open her mouth widely or to stick out her tongue - says this has always happened for her. She says she has long gotten a "thick tongue" with slurred speech when she gets anxious. She evidences markedly dysarthric speech for a limited portion of the exam (while talking about her history of this) but it resolved completely after about one minute and did not recur. I did not believe this represented medication-induced dystonia. This has not recurred. Pt exhibiting improving insight, able to identify symptoms as manic. Slept well last night, still feeling a bit sleepy so possibly medication effect. Discussed reducing risperidone. Has been participating in groups. Behavior generally appropriate. Does still make some loose associations and report abrupt odd thoughts, chatty but not pressured. 10/23/2023: Substantial improvement. Pt has been speaking about feeling embarrassed about some of the things she did and said while more manic (oddly apologizing for calling a nurse "an sarah" and for asking me if I were "Dumbledore"). She slept 8 hours last night with no additional medication. Shortly before I saw pt today she inadvertently flooded the floor while showering. Staff are completely confident this was unintentional and resulted from her unfamiliarity with the shower layout. She was mortified and became very anxious and was given PRN quetiapine. Over the course of my exam she gradually became somnolent. However, for most of the time she was reasonably well-focused and able to participate in the exam. She says she has been tolerating both the divalproex as its dose has been titrated and the risperidone well and doesn't attribute any side effects to either. She does attribute to them a great deal of improvement - "my mind isn't jumping", e.g. She thinks the quetiapine has been sedating (which is evident) but that it has been very helpful for anxiety. 10/22/2023: Slept much of the time since given IM medication yesterday afternoon. When awake, reported manic, grandiose delusions as well as less clearly-manic and more persecutory beliefs (e.g., in "portals" that somehow pose a risk and must be incapacitated). Initially refused ordered medication this morning but eventually did agree to take them. Tells me that she has had previous somewhat similar but less serious episodes of elevated mood, "jumping thoughts that go 1,000 miles an hour", impulsive behavior, and "masturbating in public" (which she commends as a useful intervention when distracted or anxious). 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 She acknowledges that some of her thoughts "have been crazy". Says her hesitation about medication is because she doesn't "want it all to be taken away". 10/21/2023: Will start divalproex as mood stabilizer likely to be appropriate over the senior care, titrate to 1,500 mg/day before checking trough level and further adjustment as needed to achieve blood level in 85-125 ug/mL range. In light of clear need for faster-onset mood stabilization with start risperidone ODT 1 mg TID. Due to evidence of rapid escalation, will provide IM haloperidol 5 mg, lorazepam 2 mg, and diphenhydramine 50 mg Q6H PRN psychosis or gabe. (1) Bipolar disorder, current episode manic, severe with psychotic features: Plan 10/24/2023: * continue divalproex 500 mg TID - increased 10/23/2023, increased 10/22/2023 to BID, started 10/21/2023 at 500 mg once daily * trough valproate level ordered for 10/26/23 * change risperidone from ODT to regular tablet, reduce dose to 1 mg BID - started 10/21/2023 as ODT 1 mg TID * for gabe or psychosis, continue haloperidol 5 mg IM, lorazepam 2 mg IM, and diphenhydramine 50 mg IM Q6H PRN gabe or psychosis * A private room remains medically necessary for the safety of self and others. 10/23/2023: * increase divalproex to 500 mg TID - increased 10/22/2023 to BID, started 10/21/2023 at 500 mg once daily * trough valproate level ordered for 10/26/23 * continue risperidone ODT 1 mg TID - started 10/21/2023 * for gabe or psychosis, continue haloperidol 5 mg IM, lorazepam 2 mg IM, and diphenhydramine 50 mg IM Q6H PRN gabe or psychosis * A private room remains medically necessary for the safety of self and others. 10/22/2023: * A private room remains medically necessary for the safety of self and others. * increase divalproex to 500 mg BID today, TID tomorrow - started 10/21/2023 at 500 mg once daily * continue risperidone ODT 1 mg TID - started 10/21/2023 * for gabe or psychosis, continue haloperidol 5 mg IM, lorazepam 2 mg IM, and diphenhydramine 50 mg IM Q6H PRN gabe or psychosis 10/21/2023: The patient was admitted to the [facility] ([facility]) on q15 minute checks (behavioral with suicide precautions) for safety.The patient will participate in group, recreational, and milieu therapies and will be offered additional individual and family sessions as clinically appropriate. * A private room is medically necessary for the safety of self and others. * start divalproex 500 mg once today, BID tomorrow, TID following day * start risperidone ODT 1 mg TID * for gabe or psychosis haloperidol 5 mg IM, lorazepam 2 mg IM, and diphenhydramine 50 mg IM Q6H PRN gabe or psychosis Inventory Assets Strengths: has local supports, voluntary, attending classes Needs: safety and stabilization, medication adjustment, additional coping skills, increased outpatient services Suicide Risk Level Suicide Risk Level: High-Moderate (q15 min suicide checks) (no suicidal thoughts reported but very manic with psychosis, poor impulse control, psychomotor agitation) Risk Factors Assessment Male: No : No Do You Have Access To A Gun?: No Health Problems: No Mental Health Diagnoses: Yes Previous Attempt: No Previous Psychiatric Hospitalization: No Protective Factors Assessment : No Responsible for Young Children: No Employed: No Interval History Identifying Information BRIELLE ORTIZ (ASTORIA) is a 23-year-old F who currently lives in [place] alone, has a history of depression, and was admitted on 10/21/23 02:24 on a 201 voluntary commitment for gabe. Chief Complaint "I feel better today". Review of Systems Sleep Information Total Hours of Sleep: 8.5 Meal Information Percent Meal Consumed - Breakfast: 95 Percent Meal Consumed - Lunch: 0 Percent Meal Consumed - Dinner: 50 Nutrition Comment: pt. allowed to rest, meal dated, labeled and refrigerated. Subjective Subjective The patient was seen and assessed and interval progress reviewed in a multidisciplinary team meeting with the treatment team. For details, see the "Impression" section. Overall I spent a total of 44 minutes for this inpatient follow-up including review of chart records, direct evaluation of the patient [id number], counseling the patient, reconciling and ordering medication, medication education with the patient, risk assessment, discussion during interdisciplinary treatment rounds, and documentation in the electronic health record. Physical Exam Psychiatric Orientation: alert, oriented to person, oriented to place, oriented to time and cooperative Apperance: appropriately dressed and appropriately groomed Eye Contact: + fair eye contact Motor Behavior: no abnormal motor movements Speech: normal rate/rhythm/volume of speech (somewhat abbreviated latency of response, prolonged duration); no pressured speech and no loud speech Affect: + anxious affect Mood: + anxious mood Thought Process: + tangential thought process and + flight of ideas Thought Content: reality based without delusions Suicidal Thoughts: denies suicidal thoughts, denies suicidal plan and denies suicidal intent Homicidal Thoughts: denies homicidal thoughts Hallucinations: no auditory hallucinations and no visual hallucinations Cognition: recent memory grossly intact, remote memory grossly intact and language grossly intact; + attention not intact (distractible, but improving) Estimated Intelligence: consistent with education level Insight: + fair insight Judgment: + limited judgement Vital Signs (Past 24 Hours) Last Vital Signs Temp 37.4 C 10/24/23 06:00 Pulse 90 10/24/23 06:42 Resp 16 10/24/23 06:00 BP 120/76 10/24/23 06:42 Pulse Ox 98 10/24/23 06:00 O2 Del Method Room Air 10/24/23 06:00 Results & Data ([facility]) Current Inpatient Medications Current Inpatient Medications: Current Inpatient Medications Acetaminophen (Acetaminophen 325 Mg Tab) 650 mg PO Q4H PRN PRN Reason: Headache or Minor Fever Stop: 11/20/23 03:02 Al Hydrox/Mg Hydrox/Simethicone (Aluminum/Magnesium Susp 30 Ml Udc) 30 ml PO Q4H PRN PRN Reason: GI Upset Stop: 11/20/23 03:02 Bismuth Subsalicylate (Bismuth Subsalicylate Liqd 236 Ml) 15 ml PO PRN PRN PRN Reason: Loose Stool Stop: 11/20/23 03:02 Diphenhydramine HCl (Diphenhydramine 50 Mg/Ml Vial) 50 mg IM Q8 PRN PRN Reason: gabe Stop: 11/20/23 20:21 Divalproex Sodium (Divalproex Delay Release 250 Mg Tabec) 500 mg PO TID LOVE Stop: 11/22/23 13:59 Last Admin: 10/24/23 10:14 Dose: 500 mg Haloperidol Lactate (Haloperidol Lactate 5 Mg/Ml 1 Ml Vial) 5 mg IM Q6 PRN PRN Reason: psychosis or gabe Stop: 11/20/23 20:21 Hydroxyzine HCl (Hydroxyzine Hcl 25 Mg Tab) 50 mg PO HSZ PRN PRN Reason: Insomnia Stop: 11/20/23 03:02 Hydroxyzine HCl (Hydroxyzine Hcl 25 Mg Tab) 25 mg PO Q4H PRN PRN Reason: Anxiety Stop: 11/20/23 03:02 Lorazepam (Lorazepam 2 Mg/1 Ml Vial) 2 mg IM Q6 PRN PRN Reason: gabe Stop: 11/20/23 20:21 Magnesium Hydroxide (Magnesium Hydroxide Susp 30 Ml Udc) 30 ml PO DAILY PRN PRN Reason: Constipation Stop: 11/20/23 03:02 Quetiapine Fumarate (Quetiapine Fumarate 25 Mg Tablet) 50 mg PO Q6 PRN PRN Reason: gabe/psychosis Stop: 11/20/23 05:59 Last Admin: 10/23/23 11:50 Dose: 50 mg Risperidone (Risperidone Odt 1mg) 1 mg PO TID LOVE Stop: 11/20/23 20:59 Last Admin: 10/24/23 10:14 Dose: 1 mg Sodium Chloride (Sodium Chloride 0.65% Na Soln 45 Ml ([place])) 1 - 2 sprays NA PRN PRN PRN Reason: Nasal Dryness/Congestion Stop: 11/20/23 03:02 Mental Health & Subst Abuse Tx Therapist Name of Therapist: ТАТЬЯНА Puppy Sitter Name of Puppy Sitter: Carol Cueva @ [facility]? Post Discharge Appointments Primary Care Physician Name Of Family Doctor/PCP: NAZARIO
[2023-10-24] MEDS: hydrOXYzine HCl 25 MG TAB PO PRN (18:35)
[2023-10-24] MEDS: risperiDONE 1 MG TABLET PO SCH (22:02)
[2023-10-25] MEDS: risperiDONE 1 MG TABLET PO SCH ×2 (08:51→21:47)
[2023-10-25] MEDS: DIVALPROEX DELAY RELEASE 250 MG TABEC PO SCH ×3 (08:51→21:48)
--- NOTE | 2023-10-25 15:55 | Psychiatric Progress Note ---
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 There appears to be no previous history suggestive of gabe prior to this episode. She is certainly psychotic and I can't entirely rule out a primary psychotic disorder, but the presentation is very consistent with severe gabe with psychotic features. She presented seeking treatment for self-diagnosed bipolar disorder and appears at the time she signed herself in to have the capacity to make a rational and informed decision about admission. With the subsequent degree of escalation, this may no longer be the case. Accumulating evidence suggestive of ADHD (running around classrooms as a kid) or ASD (hypersensitivity to light, certain sounds, "VOCs", use of masturbation when distressed. 10/25/2023: Presents me with several pages of reasoned arguments for why she should be discharged soon. These are well-reasoned, but I reminded pt that we agree about her staying here for the shortest time that's reasonable and that she is improving rapidly, so it's not really necessary to convince me. She is less restless today, less tangential, and less talkative. She reports "great" sleep. Has been participating in groups. Less daytime sleepiness since reduction of risperidone. 10/24/2023: Yesterday evening pt complained of "thick tongue". I was still in the facility and was able to see her. I was unable to detect any dystonia. She full, supple range of motion of neck. Extraocular movements were not limited. She had no stiffness of her jaw nor any difficulty moving it. She did gag each time I asked her to open her mouth widely or to stick out her tongue - says this has always happened for her. She says she has long gotten a "thick tongue" with slurred speech when she gets anxious. She evidences markedly dysarthric speech for a limited portion of the exam (while talking about her history of this) but it resolved completely after about one minute and did not recur. I did not believe this represented medication-induced dystonia. This has not recurred. Pt exhibiting improving insight, able to identify symptoms as manic. Slept well last night, still feeling a bit sleepy so possibly medication effect. Discussed reducing risperidone. Has been participating in groups. Behavior generally appropriate. Does still make some loose associations and report abrupt odd thoughts, chatty but not pressured. 10/23/2023: Substantial improvement. Pt has been speaking about feeling embarrassed about some of the things she did and said while more manic (oddly apologizing for calling a nurse "an sarah" and for asking me if I were "Dumbledore"). She slept 8 hours last night with no additional medication. Shortly before I saw pt today she inadvertently flooded the floor while showering. Staff are completely confident this was unintentional and resulted from her unfamiliarity with the shower layout. She was mortified and became very anxious and was given PRN quetiapine. Over the course of my exam she gradually became somnolent. However, for most of the time she was reasonably well-focused and able to participate in the exam. She says she has been tolerating both the divalproex as its dose has been titrated and the risperidone well and doesn't attribute any side effects to either. She does attribute to them a great deal of improvement - "my mind isn't jumping", e.g. She thinks the quetiapine has been sedating (which is evident) but that it has been very helpful for anxiety. 10/22/2023: Slept much of the time since given IM medication yesterday after noon. When awake, reported manic, grandiose delusions as well as less clearly- manic and more persecutory beliefs (e.g., in "portals" that somehow pose a risk and must be incapacitated). Initially refused ordered medication this morning but eventually did agree to take them. Tells me that she has had previous somewhat similar but less serious episodes of elevated mood, "jumping thoughts that go 1,000 miles an hour", impulsive behavior, and "masturbating in public" (which she commends as a useful intervention when distracted or anxious). 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 She acknowledges that some of her thoughts "have been crazy". Says her hesitation about medication is because she doesn't "want it all to be taken away". 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 In light of clear need for faster-onset mood stabilization with start risperidone ODT 1 mg TID. Due to evidence of rapid escalation, will provide IM haloperidol 5 mg, lorazepam 2 mg, and diphenhydramine 50 mg Q6H PRN psychosis or gabe. (1) Bipolar disorder, current episode manic, severe with psychotic features: Plan 10/25/2023: * continue divalproex 500 mg TID - increased 10/23/2023, increased 10/22/2023 to BID, started 10/21/2023 at 500 mg once daily * trough valproate level ordered for 10/26/23 * continue risperidone 1 mg BID - decreased 10/24/2023, started 10/21/2023 as ODT 1 mg TID * A private room remains medically necessary for the safety of self and others. 10/24/2023: * continue divalproex 500 mg TID - increased 10/23/2023, increased 10/22/2023 to BID, started 10/21/2023 at 500 mg once daily * trough valproate level ordered for 10/26/23 * change risperidone from ODT to regular tablet, reduce dose to 1 mg BID - started 10/21/2023 as ODT 1 mg TID * for gabe or psychosis, continue haloperidol 5 mg IM, lorazepam 2 mg IM, and diphenhydramine 50 mg IM Q6H PRN gabe or psychosis * A private room remains medically necessary for the safety of self and others. 10/23/2023: * increase divalproex to 500 mg TID - increased 10/22/2023 to BID, started 10/21/2023 at 500 mg once daily * trough valproate level ordered for 10/26/23 * continue risperidone ODT 1 mg TID - started 10/21/2023 * for gabe or psychosis, continue haloperidol 5 mg IM, lorazepam 2 mg IM, and diphenhydramine 50 mg IM Q6H PRN gabe or psychosis * A private room remains medically necessary for the safety of self and others. 10/22/2023: * A private room remains medically necessary for the safety of self and others. * increase divalproex to 500 mg BID today, TID tomorrow - started 10/21/2023 at 500 mg once daily * continue risperidone ODT 1 mg TID - started 10/21/2023 * for gabe or psychosis, continue haloperidol 5 mg IM, lorazepam 2 mg IM, and diphenhydramine 50 mg IM Q6H PRN gabe or psychosis 10/21/2023: The patient was admitted to the [facility] ([facility] unit) on q15 minute checks (behavioral with suicide precautions) for safety.The patient will participate in group, recreational, and milieu therapies and will be offered additional individual and family sessions as clinically appropriate. * A private room is medically necessary for the safety of self and others. * start divalproex 500 mg once today, BID tomorrow, TID following day * start risperidone ODT 1 mg TID * for gabe or psychosis haloperidol 5 mg IM, lorazepam 2 mg IM, and diphenhydramine 50 mg IM Q6H PRN gabe or psychosis Inventory Assets Strengths: has local supports, voluntary, attending classes Needs: safety and stabilization, medication adjustment, additional coping skills, increased outpatient services Suicide Risk Level Suicide Risk Level: Moderate (q15 min suicide checks) (no suicidal thoughts reported but clearing gabe) Risk Factors Assessment Male: No : No Do You Have Access To A Gun?: No Health Problems: No Mental Health Diagnoses: Yes Previous Attempt: No Previous Psychiatric Hospitalization: No Protective Factors Assessment : No Responsible for Young Children: No Employed: No Interval History Identifying Information BRIELLE ORTIZ (ASTORIA) is a 23-year-old F who currently lives in [place] alone, has a history of depression, and was admitted on 10/21/23 02:24 on a 201 voluntary commitment for gabe. Chief Complaint "I think I should be able to leave soon". Review of Systems Sleep Information Total Hours of Sleep: 7 Meal Information Percent Meal Consumed - Breakfast: 100 Percent Meal Consumed - Lunch: 75 Percent Meal Consumed - Dinner: 100 Nutrition Comment: pt. allowed to rest, meal dated, labeled and refrigerated. Subjective Subjective The patient was seen and assessed and interval progress reviewed in a multidisciplinary team meeting with the treatment team. For details, see the "Impression" section. Overall I spent a total of 42 minutes for this inpatient follow-up including review of chart records, review of test results, direct evaluation of the patient [id number], counseling the patient, medication education with the patient, risk assessment, discussion during interdisciplinary treatment rounds, and documentation in the electronic health record. Physical Exam Psychiatric Orientation: alert, oriented to person, oriented to place, oriented to time and cooperative Apperance: appropriately dressed and appropriately groomed Eye Contact: + fair eye contact Motor Behavior: no abnormal motor movements and + psychomotor agitation (restless, fidgety) Speech: normal rate/rhythm/volume of speech (somewhat abbreviated latency of response, prolonged duration); no pressured speech and no loud speech Affect: + anxious affect Mood: + anxious mood Thought Process: + tangential thought process Thought Content: reality based without delusions Suicidal Thoughts: denies suicidal thoughts, denies suicidal plan and denies suicidal intent Homicidal Thoughts: denies homicidal thoughts Hallucinations: no auditory hallucinations and no visual hallucinations Cognition: recent memory grossly intact, remote memory grossly intact and language grossly intact; + attention not intact (distractible, but improving) Estimated Intelligence: consistent with education level Insight: + fair insight Judgment: + limited judgement Vital Signs (Past 24 Hours) Last Vital Signs Temp 36.7 C 10/25/23 06:44 Pulse 79 10/25/23 06:44 Resp 16 10/25/23 06:44 BP 126/97 10/25/23 06:44 Pulse Ox 98 10/24/23 06:00 O2 Del Method Room Air 10/24/23 06:00 Results & Data ([facility]) Current Inpatient Medications Current Inpatient Medications: Current Inpatient Medications Acetaminophen (Acetaminophen 325 Mg Tab) 650 mg PO Q4H PRN PRN Reason: Headache or Minor Fever Stop: 11/20/23 03:02 Al Hydrox/Mg Hydrox/Simethicone (Aluminum/Magnesium Susp 30 Ml Udc) 30 ml PO Q4H PRN PRN Reason: GI Upset Stop: 11/20/23 03:02 Bismuth Subsalicylate (Bismuth Subsalicylate Liqd 236 Ml) 15 ml PO PRN PRN PRN Reason: Loose Stool Stop: 11/20/23 03:02 Diphenhydramine HCl (Diphenhydramine 50 Mg/Ml Vial) 50 mg IM Q8 PRN PRN Reason: gabe Stop: 11/20/23 20:21 Divalproex Sodium (Divalproex Delay Release 250 Mg Tabec) 500 mg PO TID LOVE Stop: 11/22/23 13:59 Last Admin: 10/25/23 14:37 Dose: 500 mg Haloperidol Lactate (Haloperidol Lactate 5 Mg/Ml 1 Ml Vial) 5 mg IM Q6 PRN PRN Reason: psychosis or gabe Stop: 11/20/23 20:21 Hydroxyzine HCl (Hydroxyzine Hcl 25 Mg Tab) 50 mg PO HSZ PRN PRN Reason: Insomnia Stop: 11/20/23 03:02 Hydroxyzine HCl (Hydroxyzine Hcl 25 Mg Tab) 25 mg PO Q4H PRN PRN Reason: Anxiety Stop: 11/20/23 03:02 Last Admin: 10/24/23 18:35 Dose: 25 mg Lorazepam (Lorazepam 2 Mg/1 Ml Vial) 2 mg IM Q6 PRN PRN Reason: gabe Stop: 11/20/23 20:21 Magnesium Hydroxide (Magnesium Hydroxide Susp 30 Ml Udc) 30 ml PO DAILY PRN PRN Reason: Constipation Stop: 11/20/23 03:02 Quetiapine Fumarate (Quetiapine Fumarate 25 Mg Tablet) 50 mg PO Q6 PRN PRN Reason: gabe/psychosis Stop: 11/20/23 05:59 Last Admin: 10/23/23 11:50 Dose: 50 mg Risperidone (Risperidone 1 Mg Tablet) 1 mg PO BID LOVE Stop: 11/23/23 20:59 Last Admin: 10/25/23 08:51 Dose: 1 mg Sodium Chloride (Sodium Chloride 0.65% Na Soln 45 Ml ([place])) 1 - 2 sprays NA PRN PRN PRN Reason: Nasal Dryness/Congestion Stop: 11/20/23 03:02 Mental Health & Subst Abuse Tx Therapist Name of Therapist: ТАТЬЯНА Labor Economist Name of Labor Economist: Carol Cueva @ [facility]? Post Discharge Appointments Primary Care Physician Name Of Family Doctor/PCP: NAZARIO
[2023-10-26] MEDS: DIVALPROEX DELAY RELEASE 250 MG TABEC PO SCH (09:14)
[2023-10-26] MEDS: risperiDONE 1 MG TABLET PO SCH ×2 (09:15→20:28)
--- NOTE | 2023-10-26 12:02 | Psychiatric Progress Note ---
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 There appears to be no previous history suggestive of gabe prior to this episode. She is certainly psychotic and I can't entirely rule out a primary psychotic disorder, but the presentation is very consistent with severe gabe with psychotic features. She presented seeking treatment for self-diagnosed bipolar disorder and appears at the time she signed herself in to have the capacity to make a rational and informed decision about admission. With the subsequent degree of escalation, this may no longer be the case. Accumulating evidence suggestive of ADHD (running around classrooms as a kid) or ASD (hypersensitivity to light, certain sounds, "VOCs", use of masturbation when distressed. 10/26/2023: Valproate level this AM (trough) was supratherapeutic 164 ng/mL. While this is very unlikely to be toxic, it exceeds the therapeutic range for bipolar disorder (85-125 ng/mL) by a significant amount. As pt has had 3 days at the same dose prior to sampling, it's reasonably likely to represent her steady- state level. It's likely that reducing the dose by 1/3 will reduce the blood level by roughly 1/3 (though the dose:level curve is not flat) in which case the resulting level should be within the target range. The current blood level could decrease by 24% to 48% and fall within the target range so in my opinion a dose of 1,000 mg/day is likely to be therapeutic. Discussed with pt that she will need a follow-up level in the next few weeks to confirm that. Pt is eager for discharge, though somewhat anxious given her clear recall of how psychotic she was and the degree of her behavioral dyscontrol. Discussed that she has improved markedly and that her history strongly suggests that at baseline she is not neurotypical so even when not having any significant mood symptoms she's still likely to be overwhelmed by certain environmental stimuli or have thoughts or associations that others find odd. Today pt reveals episodes of synesthesia, including smelling green traffic lights as minty or experiencing a dirty bathtub as loud. 10/25/2023: Presents me with several pages of reasoned arguments for why she should be discharged soon. These are well-reasoned, but I reminded pt that we agree about her staying here for the shortest time that's reasonable and that she is improving rapidly, so it's not really necessary to convince me. She is less restless today, less tangential, and less talkative. She reports "great" sleep. Has been participating in groups. Less daytime sleepiness since reduction of risperidone. 10/24/2023: Yesterday evening pt complained of "thick tongue". I was still in the facility and was able to see her. I was unable to detect any dystonia. She full, supple range of motion of neck. Extraocular movements were not limited. She had no stiffness of her jaw nor any difficulty moving it. She did gag each time I asked her to open her mouth widely or to stick out her tongue - says this has always happened for her. She says she has long gotten a "thick tongue" with slurred speech when she gets anxious. She evidences markedly dysarthric speech for a limited portion of the exam (while talking about her history of this) but it resolved completely after about one minute and did not recur. I did not believe this represented medication-induced dystonia. This has not recurred. Pt exhibiting improving insight, able to identify symptoms as manic. Slept well last night, still feeling a bit sleepy so possibly medication effect. Discussed reducing risperidone. Has been participating in groups. Behavior generally appropriate. Does still make some loose associations and report abrupt odd thoughts, chatty but not pressured. 10/23/2023: Substantial improvement. Pt has been speaking about feeling embarrassed about some of the things she did and said while more manic (oddly apologizing for calling a nurse "an sarah" and for asking me if I were "Dumbledore"). She slept 8 hours last night with no additional medication. Shortly before I saw pt today she inadvertently flooded the floor while showering. Staff are completely confident this was unintentional and resulted from her unfamiliarity with the shower layout. She was mortified and became very anxious and was given PRN quetiapine. Over the course of my exam she gradually became somnolent. However, for most of the time she was reasonably well-focused and able to participate in the exam. She says she has been tolerating both the divalproex as its dose has been titrat ed and the risperidone well and doesn't attribute any side effects to either. She does attribute to them a great deal of improvement - "my mind isn't jumping", e.g. She thinks the quetiapine has been sedating (which is evident) but that it has been very helpful for anxiety. 10/22/2023: Slept much of the time since given IM medication yesterday afternoon. When awake, reported manic, grandiose delusions as well as less clearly-manic and more persecutory beliefs (e.g., in "portals" that somehow pose a risk and must be incapacitated). Initially refused ordered medication this morning but eventually did agree to take them. Tells me that she has had previous somewhat similar but less serious episodes of elevated mood, "jumping thoughts that go 1,000 miles an hour", impulsive behavior, and "masturbating in public" (which she commends as a useful intervention when distracted or anxious). 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 She acknowledges that some of her thoughts "have been crazy". Says her hesitation about medication is because she doesn't "want it all to be taken away". 10/21/2023: Will start divalproex as mood stabilizer likely to be appropriate over the m[facility], titrate to 1,500 mg/day before checking trough level and further adjustment as needed to achieve blood level in 85-125 ug/mL range. In light of clear need for faster-onset mood stabilization with start risperidone ODT 1 mg TID. Due to evidence of rapid escalation, will provide IM haloperidol 5 mg, lorazepam 2 mg, and diphenhydramine 50 mg Q6H PRN psychosis or gabe. (1) Bipolar disorder, current episode manic, severe with psychotic features: (2) Autism spectrum disorder: (3) Attention deficit hyperactivity disorder (ADHD), combined type: Plan 10/26/2023: * reduce divalproex 500 mg BID today, 1,000 mg at HS only tomorrow - increased 10/23/2023 to TID, increased 10/22/2023 to BID, started 10/21/2023 at 500 mg once daily * continue risperidone 1 mg BID - decreased 10/24/2023, started 10/21/2023 as ODT 1 mg TID * A private room remains medically necessary for the safety of self and others. * family meeting this afternoon 10/25/2023: * continue divalproex 500 mg TID - increased 10/23/2023, increased 10/22/2023 to BID, started 10/21/2023 at 500 mg once daily * trough valproate level ordered for 10/26/23 * continue risperidone 1 mg BID - decreased 10/24/2023, started 10/21/2023 as ODT 1 mg TID * A private room remains medically necessary for the safety of self and others. 10/24/2023: * continue divalproex 500 mg TID - increased 10/23/2023, increased 10/22/2023 to BID, started 10/21/2023 at 500 mg once daily * trough valproate level ordered for 10/26/23 * change risperidone from ODT to regular tablet, reduce dose to 1 mg BID - started 10/21/2023 as ODT 1 mg TID * for gabe or psychosis, continue haloperidol 5 mg IM, lorazepam 2 mg IM, and diphenhydramine 50 mg IM Q6H PRN gabe or psychosis * A private room remains medically necessary for the safety of self and others. 10/23/2023: * increase divalproex to 500 mg TID - increased 10/22/2023 to BID, started 10/21/2023 at 500 mg once daily * trough valproate level ordered for 10/26/23 * continue risperidone ODT 1 mg TID - started 10/21/2023 * for gabe or psychosis, continue haloperidol 5 mg IM, lorazepam 2 mg IM, and diphenhydramine 50 mg IM Q6H PRN gabe or psychosis * A private room remains medically necessary for the safety of self and others. 10/22/2023: * A private room remains medically necessary for the safety of self and others. * increase divalproex to 500 mg BID today, TID tomorrow - started 10/21/2023 at 500 mg once daily * continue risperidone ODT 1 mg TID - started 10/21/2023 * for gabe or psychosis, continue haloperidol 5 mg IM, lorazepam 2 mg IM, and diphenhydramine 50 mg IM Q6H PRN gabe or psychosis 10/21/2023: The patient was admitted to the [facility] ([facility] inpatient mental health unit) on q15 minute checks (behavioral with suicide precautions) for safety.The patient will participate in group, recreational, and milieu therapies and will be offered additional individual and family sessions as clinically appropriate. * A private room is medically necessary for the safety of self and others. * start divalproex 500 mg once today, BID tomorrow, TID following day * start risperidone ODT 1 mg TID * for gabe or psychosis haloperidol 5 mg IM, lorazepam 2 mg IM, and diphenhydramine 50 mg IM Q6H PRN gabe or psychosis Inventory Assets Strengths: has local supports, voluntary, attending classes Needs: safety and stabilization, medication adjustment, additional coping skills, increased outpatient services Suicide Risk Level Suicide Risk Level: Moderate (q15 min suicide checks) (no suicidal thoughts reported but clearing gabe) Risk Factors Assessment Male: No : No Do You Have Access To A Gun?: No Health Problems: No Mental Health Diagnoses: Yes Previous Attempt: No Previous Psychiatric Hospitalization: No Protective Factors Assessment : No Responsible for Young Children: No Employed: No Interval History Identifying Information BRIELLE ORTIZ (ASTORIA) is a 23-year-old F who currently lives in [place] alone, has a history of depression, and was admitted on 10/21/23 02:24 on a 201 voluntary commitment for gabe. Chief Complaint "I still get weird anxiety sometimes". Review of Systems Sleep Information Total Hours of Sleep: 7.25 Meal Information Percent Meal Consumed - Breakfast: 100 Percent Meal Consumed - Lunch: 75 Percent Meal Consumed - Dinner: 100 Nutrition Comment: pt. allowed to rest, meal dated, labeled and refrigerated. Subjective Subjective The patient was seen and assessed and interval progress reviewed in a multidisciplinary team meeting with the treatment team. For details, see the "Impression" section. Overall I spent a total of 45 minutes for this inpatient follow-up including review of chart records, review of test results, direct evaluation of the patient [id number], counseling the patient, reconciling and ordering medication, medication education with the patient, risk assessment, discussion during interdisciplinary treatment rounds, and documentation in the electronic health record. Physical Exam Psychiatric Orientation: alert, oriented to person, oriented to place, oriented to time and cooperative Apperance: appropriately dressed and appropriately groomed Eye Contact: + fair eye contact Motor Behavior: no abnormal motor movements Speech: normal rate/rhythm/volume of speech (somewhat abbreviated latency of response, prolonged duration); no pressured speech and no loud speech Affect: + anxious affect Mood: + anxious mood Thought Process: + tangential thought process Thought Content: reality based without delusions Suicidal Thoughts: denies suicidal thoughts, denies suicidal plan and denies suicidal intent Homicidal Thoughts: denies homicidal thoughts Hallucinations: no auditory hallucinations and no visual hallucinations Cognition: recent memory grossly intact, remote memory grossly intact and language grossly intact; + attention not intact (distractible, but improving) Estimated Intelligence: consistent with education level Insight: + fair insight Judgment: + limited judgement Vital Signs (Past 24 Hours) Last Vital Signs Temp 36.6 C 10/26/23 06:33 Pulse 98 H 10/26/23 06:33 Resp 16 10/26/23 06:33 BP 107/76 10/26/23 06:33 Pulse Ox 98 10/24/23 06:00 O2 Del Method Room Air 10/24/23 06:00 Results & Data ([facility]) Laboratory Results Laboratory Results - last 24 hr 10/26/23 06:05 Valproic Acid 164 H Current Inpatient Medications Current Inpatient Medications: Current Inpatient Medications Acetaminophen (Acetaminophen 325 Mg Tab) 650 mg PO Q4H PRN PRN Reason: Headache or Minor Fever Stop: 11/20/23 03:02 Al Hydrox/Mg Hydrox/Simethicone (Aluminum/Magnesium Susp 30 Ml Udc) 30 ml PO Q4H PRN PRN Reason: GI Upset Stop: 11/20/23 03:02 Bismuth Subsalicylate (Bismuth Subsalicylate Liqd 236 Ml) 15 ml PO PRN PRN PRN Reason: Loose Stool Stop: 11/20/23 03:02 Diphenhydramine HCl (Diphenhydramine 50 Mg/Ml Vial) 50 mg IM Q8 PRN PRN Reason: gabe Stop: 11/20/23 20:21 Divalproex Sodium (Divalproex Delay Release 500 Mg Tab) 500 mg PO HS LOVE Stop: 11/25/23 21:59 Haloperidol Lactate (Haloperidol Lactate 5 Mg/Ml 1 Ml Vial) 5 mg IM Q6 PRN PRN Reason: psychosis or gabe Stop: 11/20/23 20:21 Hydroxyzine HCl (Hydroxyzine Hcl 25 Mg Tab) 50 mg PO HSZ PRN PRN Reason: Insomnia Stop: 11/20/23 03:02 Hydroxyzine HCl (Hydroxyzine Hcl 25 Mg Tab) 25 mg PO Q4H PRN PRN Reason: Anxiety Stop: 11/20/23 03:02 Last Admin: 10/24/23 18:35 Dose: 25 mg Lorazepam (Lorazepam 2 Mg/1 Ml Vial) 2 mg IM Q6 PRN PRN Reason: gabe Stop: 11/20/23 20:21 Magnesium Hydroxide (Magnesium Hydroxide Susp 30 Ml Udc) 30 ml PO DAILY PRN PRN Reason: Constipation Stop: 11/20/23 03:02 Quetiapine Fumarate (Quetiapine Fumarate 25 Mg Tablet) 50 mg PO Q6 PRN PRN Reason: gabe/psychosis Stop: 11/20/23 05:59 Last Admin: 10/23/23 11:50 Dose: 50 mg Risperidone (Risperidone 1 Mg Tablet) 1 mg PO BID LOVE Stop: 11/23/23 20:59 Last Admin: 10/26/23 09:15 Dose: 1 mg Sodium Chloride (Sodium Chloride 0.65% Na Soln 45 Ml ([place])) 1 - 2 sprays NA PRN PRN PRN Reason: Nasal Dryness/Congestion Stop: 11/20/23 03:02 Mental Health & Subst Abuse Tx Therapist Name of Therapist: [id number] Babcock Tester Name of Babcock Tester: Carol Cueva @ [facility]? Post Discharge Appointments Primary Care Physician Name Of Family Doctor/PCP: Denita
[2023-10-26] MEDS: hydrOXYzine HCl 25 MG TAB PO PRN (19:49)
[2023-10-26] MEDS ORDERED: DIVALPROEX DELAY RELEASE 500 MG TAB PO SCH (22:00)
[2023-10-27] MEDS: risperiDONE 1 MG TABLET PO SCH ×3 (08:45→21:00)
--- NOTE | 2023-10-27 15:35 | Psychiatric Progress Note ---
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 There appears to be no previous history suggestive of gabe prior to this episode. She is certainly psychotic and I can't entirely rule out a primary psychotic disorder, but the presentation is very consistent with severe gabe with psychotic features. She presented seeking treatment for self-diagnosed bipolar disorder and appears at the time she signed herself in to have the capacity to make a rational and informed decision about admission. With the subsequent degree of escalation, this may no longer be the case. Accumulating evidence suggestive of ADHD (running around classrooms as a kid) or ASD (hypersensitivity to light, certain sounds, "VOCs", use of masturbation when distressed. 10/27/2023: Much more manic today. She's been doing jumping jacks during therapy, walking almost constantly, very chatty - not loud or rapid but greatly increased duration - and preoccupied with "connections" and feeling as if her symptoms confer great creativity upon her. Despite this, she tells me she's "been extremely groggy all day" and has been so tired she's "barely able to function". Drapes herself over her bed, shifting poses rapidly with frequent sighs. She eventually guardedly acknowledges "some racing thoughts" but insists that's just because she's "so excited about leaving". Chronology suggests reduction of risperidone from 1 mg TID to 1 mg BID two days ago was premature. Pt guardedly agrees to increase back to 1 mg TID. 10/26/2023: Valproate level this AM (trough) was supratherapeutic 164 ng/mL. While this is very unlikely to be toxic, it exceeds the therapeutic range for bipolar disorder (85-125 ng/mL) by a significant amount. As pt has had 3 days at the same dose prior to sampling, it's reasonably likely to represent her steady- state level. It's likely that reducing the dose by 1/3 will reduce the blood level by roughly 1/3 (though the dose:level curve is not flat) in which case the resulting level should be within the target range. The current blood level could decrease by 24% to 48% and fall within the target range so in my opinion a dose of 1,000 mg/day is likely to be therapeutic. Discussed with pt that she will need a follow-up level in the next few weeks to confirm that. Pt is eager for discharge, though somewhat anxious given her clear recall of how psychotic she was and the degree of her behavioral dyscontrol. Discussed that she has improved markedly and that her history strongly suggests that at baseline she is not neurotypical so even when not having any significant mood symptoms she's still likely to be overwhelmed by certain environmental stimuli or have thoughts or associations that others find odd. Today pt reveals episodes of synesthesia, including smelling green traffic lights as minty or experiencing a dirty bathtub as loud. 10/25/2023: Presents me with several pages of reasoned arguments for why she should be discharged soon. These are well-reasoned, but I reminded pt that we agree about her staying here for the shortest time that's reasonable and that she is improving rapidly, so it's not really necessary to convince me. She is less restless today, less tangential, and less talkative. She reports "great" sleep. Has been participating in groups. Less daytime sleepiness since reduction of risperidone. 10/24/2023: Yesterday evening pt complained of "thick tongue". I was still in the facility and was able to see her. I was unable to detect any dystonia. She full, supple range of motion of neck. Extraocular movements were not limited. She had no stiffness of her jaw nor any difficulty moving it. She did gag each time I asked her to open her mouth widely or to stick out her tongue - says this has always happened for her. She says she has long gotten a "thick tongue" with slurred speech when she gets anxious. She evidences markedly dysarthric speech for a limited portion of the exam (while talking about her history of this) but it resolved completely after about one minute and did not recur. I did not believe this represented medication-induced dystonia. This has not recurred. Pt exhibiting improving insight, able to identify symptoms as manic. Slept well last night, still feeling a bit sleepy so possibly medication effect. Discussed reducing risperidone. Has been participating in groups. Behavior generally appropriate. Does still make some loose associations and report abrupt odd thoughts, chatty but not pressured. 10/23/2023: Substantial improvement. Pt has been speaking about feeling embarrassed about some of the things she did and said while more manic (oddly apologizing for calling a nurse "an sarah" and for asking me if I were "Dumbledore"). She slept 8 hours last night with no additional medication. Shortly before I saw pt today she inadvertently flooded the floor while showering. Staff are completely confident this was unintentional and resulted from her unfamiliarity with the shower layout. She was mortified and became very anxious and was given PRN quetiapine. Over the course of my exam she gradually became somnolent. However, for most of the time she was reasonably well-focused and able to participate in the exam. She says she has been tolerating both the divalproex as its dose has been titrated and the risperidone well and doesn't attribute any side effects to either. She does attribute to them a great deal of improvement - "my mind isn't jumping", e.g. She thinks the quetiapine has been sedating (which is evident) but that it has been very helpful for anxiety. 10/22/2023: Slept much of the time since given IM medication yesterday afternoon. When awake, reported manic, grandiose delusions as well as less clearly-manic and more persecutory beliefs (e.g., in "portals" that somehow pose a risk and must be incapacitated). Initially refused ordered medication this morning but eventually did agree to take them. Tells me that she has had pr evious somewhat similar but less serious episodes of elevated mood, "jumping thoughts that go 1,000 miles an hour", impulsive behavior, and "masturbating in public" (which she commends as a useful intervention when distracted or anxious). 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 She acknowledges that some of her thoughts "have been crazy". Says her hesitation about medication is because she doesn't "want it all to be taken away". 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 In light of clear need for faster-onset mood stabilization with start risperidone ODT 1 mg TID. Due to evidence of rapid escalation, will provide IM haloperidol 5 mg, lorazepam 2 mg, and diphenhydramine 50 mg Q6H PRN psychosis or gabe. (1) Bipolar disorder, current episode manic, severe with psychotic features: (2) Autism spectrum disorder: (3) Attention deficit hyperactivity disorder (ADHD), combined type: Plan 10/27/2023: * continue divalproex 1,000 mg at HS - decreased 09/26/2023, increased 10/23/2023 to TID, increased 10/22/2023 to BID, started 10/21/2023 at 500 mg once daily * increase risperidone back to 1 mg TID - decreased 10/24/2023 to BID, started 10/21/2023 as ODT 1 mg TID * A private room remains medically necessary for the safety of self and others. 10/26/2023: * reduce divalproex 500 mg BID today, 1,000 mg at HS only tomorrow - increased 10/23/2023 to TID, increased 10/22/2023 to BID, started 10/21/2023 at 500 mg once daily * continue risperidone 1 mg BID - decreased 10/24/2023, started 10/21/2023 as ODT 1 mg TID * A private room remains medically necessary for the safety of self and others. * family meeting this afternoon 10/25/2023: * continue divalproex 500 mg TID - increased 10/23/2023, increased 10/22/2023 to BID, started 10/21/2023 at 500 mg once daily * trough valproate level ordered for 10/26/23 * continue risperidone 1 mg BID - decreased 10/24/2023, started 10/21/2023 as ODT 1 mg TID * A private room remains medically necessary for the safety of self and others. 10/24/2023: * continue divalproex 500 mg TID - increased 10/23/2023, increased 10/22/2023 to BID, started 10/21/2023 at 500 mg once daily * trough valproate level ordered for 10/26/23 * change risperidone from ODT to regular tablet, reduce dose to 1 mg BID - started 10/21/2023 as ODT 1 mg TID * for gabe or psychosis, continue haloperidol 5 mg IM, lorazepam 2 mg IM, and diphenhydramine 50 mg IM Q6H PRN gabe or psychosis * A private room remains medically necessary for the safety of self and others. 10/23/2023: * increase divalproex to 500 mg TID - increased 10/22/2023 to BID, started 10/21/2023 at 500 mg once daily * trough valproate level ordered for 10/26/23 * continue risperidone ODT 1 mg TID - started 10/21/2023 * for gabe or psychosis, continue haloperidol 5 mg IM, lorazepam 2 mg IM, and diphenhydramine 50 mg IM Q6H PRN gabe or psychosis * A private room remains medically necessary for the safety of self and others. 10/22/2023: * A private room remains medically necessary for the safety of self and others. * increase divalproex to 500 mg BID today, TID tomorrow - started 10/21/2023 at 500 mg once daily * continue risperidone ODT 1 mg TID - started 10/21/2023 * for gabe or psychosis, continue haloperidol 5 mg IM, lorazepam 2 mg IM, and diphenhydramine 50 mg IM Q6H PRN gabe or psychosis 10/21/2023: The patient was admitted to the [facility] ([facility]) on q15 minute checks (behavioral with suicide precautions) for safety.The patient will participate in group, recreational, and milieu therapies and will be offered additional individual and family sessions as clinically appropriate. * A private room is medically necessary for the safety of self and others. * start divalproex 500 mg once today, BID tomorrow, TID following day * start risperidone ODT 1 mg TID * for gabe or psychosis haloperidol 5 mg IM, lorazepam 2 mg IM, and diphenhydramine 50 mg IM Q6H PRN gabe or psychosis Inventory Assets Strengths: has local supports, voluntary, attending classes Needs: safety and stabilization, medication adjustment, additional coping skills, increased outpatient services Suicide Risk Level Suicide Risk Level: Moderate (q15 min suicide checks) (no suicidal thoughts reported but clearing gabe) Risk Factors Assessment Male: No : No Do You Have Access To A Gun?: No Health Problems: No Mental Health Diagnoses: Yes Previous Attempt: No Previous Psychiatric Hospitalization: No Protective Factors Assessment : No Responsible for Young Children: No Employed: No Interval History Identifying Information BRIELLE ORTIZ (ASTORIA) is a 23-year-old F who currently lives in [place] alone, has a history of depression, and was admitted on 10/21/23 02:24 on a 201 voluntary commitment for gabe. Chief Complaint "I'm sooooooo groggy". Review of Systems Sleep Information Total Hours of Sleep: 9 Meal Information Percent Meal Consumed - Breakfast: 100 Percent Meal Consumed - Lunch: 90 Percent Meal Consumed - Dinner: 100 Nutrition Comment: pt. allowed to rest, meal dated, labeled and refrigerated. Subjective Subjective The patient was seen and assessed and interval progress reviewed in a multidisciplinary team meeting with the treatment team. For details, see the "Impression" section. Overall I spent a total of 50 minutes for this inpatient follow-up including review of chart records, direct evaluation of the patient [id number], counseling the patient, reconciling and ordering medication, medication education with the patient, risk assessment, discussion during interdisciplinary treatment rounds, and documentation in the electronic health record. Physical Exam Psychiatric Orientation: alert, oriented to person, oriented to place, oriented to time and cooperative Apperance: appropriately dressed, appropriately groomed and + disheveled Eye Contact: + fair eye contact Motor Behavior: no abnormal motor movements and + psychomotor agitation (restless, fidgety) Speech: normal rate/rhythm/volume of speech (somewhat abbreviated latency of response, prolonged duration); no pressured speech and no loud speech Affect: + anxious affect and + labile affect Mood: + anxious mood Thought Process: + tangential thought process and + flight of ideas Thought Content: reality based without delusions and + delusions (about cosmic connectedness) Suicidal Thoughts: denies suicidal thoughts, denies suicidal plan and denies suicidal intent Homicidal Thoughts: denies homicidal thoughts Hallucinations: no auditory hallucinations and no visual hallucinations Cognition: recent memory grossly intact, remote memory grossly intact and language grossly intact; + attention not intact (distractible, but improving) Estimated Intelligence: consistent with education level Insight: + limited insight and + fair insight Judgment: + limited judgement Vital Signs (Past 24 Hours) Last Vital Signs Temp 36.9 C 10/27/23 06:37 Pulse 88 10/27/23 06:42 Resp 16 10/27/23 06:37 BP 118/83 10/27/23 06:42 Pulse Ox 98 10/24/23 06:00 O2 Del Method Room Air 10/24/23 06:00 Results & Data ([facility]) Current Inpatient Medications Current Inpatient Medications: Current Inpatient Medications Acetaminophen (Acetaminophen 325 Mg Tab) 650 mg PO Q4H PRN PRN Reason: Headache or Minor Fever Stop: 11/20/23 03:02 Al Hydrox/Mg Hydrox/Simethicone (Aluminum/Magnesium Susp 30 Ml Udc) 30 ml PO Q4H PRN PRN Reason: GI Upset Stop: 11/20/23 03:02 Bismuth Subsalicylate (Bismuth Subsalicylate Liqd 236 Ml) 15 ml PO PRN PRN PRN Reason: Loose Stool Stop: 11/20/23 03:02 Diphenhydramine HCl (Diphenhydramine 50 Mg/Ml Vial) 50 mg IM Q8 PRN PRN Reason: gabe Stop: 11/20/23 20:21 Divalproex Sodium (Divalproex Delay Release 500 Mg Tab) 500 mg PO HS LOVE Stop: 11/25/23 21:59 Last Admin: 10/26/23 20:28 Dose: 500 mg Haloperidol Lactate (Haloperidol Lactate 5 Mg/Ml 1 Ml Vial) 5 mg IM Q6 PRN PRN Reason: psychosis or gabe Stop: 11/20/23 20:21 Hydroxyzine HCl (Hydroxyzine Hcl 25 Mg Tab) 50 mg PO HSZ PRN PRN Reason: Insomnia Stop: 11/20/23 03:02 Hydroxyzine HCl (Hydroxyzine Hcl 25 Mg Tab) 25 mg PO Q4H PRN PRN Reason: Anxiety Stop: 11/20/23 03:02 Last Admin: 10/26/23 19:49 Dose: 25 mg Lorazepam (Lorazepam 2 Mg/1 Ml Vial) 2 mg IM Q6 PRN PRN Reason: gabe Stop: 11/20/23 20:21 Magnesium Hydroxide (Magnesium Hydroxide Susp 30 Ml Udc) 30 ml PO DAILY PRN PRN Reason: Constipation Stop: 11/20/23 03:02 Quetiapine Fumarate (Quetiapine Fumarate 25 Mg Tablet) 50 mg PO Q6 PRN PRN Reason: gabe/psychosis Stop: 11/20/23 05:59 Last Admin: 10/23/23 11:50 Dose: 50 mg Risperidone (Risperidone 1 Mg Tablet) 1 mg PO TID LOVE Stop: 11/26/23 13:59 Last Admin: 10/27/23 14:37 Dose: Not Given Sodium Chloride (Sodium Chloride 0.65% Na Soln 45 Ml ([place])) 1 - 2 sprays NA PRN PRN PRN Reason: Nasal Dryness/Congestion Stop: 11/20/23 03:02 Mental Health & Subst Abuse Tx Psychiatrist Name of Psychiatrist: Roseline Clifford Psychiatrist's Date Of Appointment With Psychiatric Provider: 11/19/22 Time of Appointment with Psychiatrist: 9:30 AM Psychiatric Appointment Comment: [address] [facility], [place] [address] Therapist Name of Therapist: Venkatesh - Intake Therapist's Date of Therapist Appointment: 11/13/22 Time of Therapist Appointment: 12:30 PM Therapy Appointment Comment: [address] [facility], [place] [address] Liquor Merchant Name of Liquor Merchant: Carol Cueva @ [facility]? Post Discharge Appointments Primary Care Physician Name Of Family Doctor/PCP: [facility] Primary Care Provider Appointment Comment: Please follow-up as needed.
[2023-10-27] MEDS ORDERED: risperiDONE 1 MG TABLET PO ONE ×2 (20:45→21:30)
[2023-10-27] MEDS ORDERED: DIVALPROEX DELAY RELEASE 500 MG TAB PO SCH (22:00)
[2023-10-28] MEDS: risperiDONE 1 MG TABLET PO SCH ×2 (09:00→13:54)
--- NOTE | 2023-10-28 14:31 | Discharge Summary ---
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 She believes that she has undiagnosed ADHD and bipolar. She has trouble focusing on things. She has trouble sleeping. She is only slept 2 hours in the past 48. Prior to that she had slept about 5 hours. She denies any headache or change in vision. No chest pain or shortness of breath. She denies any auditory hallucinations but notes that she does talk to herself sometimes intentionally has done this all of her life. She is getting work done and meeting the requirements per the University. Additional history was obtained by her professor at bedside who confirms that she is getting her materials done for school. She does believe that sometimes life is cyclical and does not know if it is worth living. She currently denies any thoughts when to harm yourself or harm anyone else." the following notes by the ED psychiatric catalytic case operator: "Pt denies SI. States she had thoughts tonight that in the broader context of the universe it would not matter if she lived or . Pt denied any intent or plan behind these thoughts. States she feels as though she is undiagnosed with ADHD and Bipolar Disorder. Reports inconsistent sleep the past few days, with two or three hours yesterday and four or five hours the day before that. Pt endorses racing thoughts and photo sensitivity which has increased her stress. Pt is mildly tangential. 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 Advisor states she has been keeping up with her responsibilities." "Met with pt to complete MH assessment. Pt requests her PhD advisor, José Luis, stay in the room. Pt remains somewhat tangential with flight of ideas. Pt required some redirection to answer questions appropriately but stayed pleasant and cooperative throughout. Pt states she does experience rare SI that typically follows coming off a high period. She frequently strays off topic to discuss AI singularities, connections, and patterns in the Universe. Pt did ask this CM if I saw evidence of a singularity in her. Pt also stated that she believes she is so calm that her brain waves will mimic those of someone currently asleep. Pt also stated that she was having issues with photosensitivity and kept her eyes covered. However, later in the assessment pt was able to look at this CM without difficulty. Pt states that she was taking Lexapro until 2 days ago but stopped because she did not feel as though she needed it. Pts prescriber is in [place]. She denies self-injury. Denies HI. Denies AH/VH. Denies a history of inpatient treatment. Denies prior suicide attempts. " and the following note by the psychiatric liaison nurse: "Pt is a [employer] student from [place] working on PhD. Pt willing for voluntary treatment (201). Lives in an apartment by herself off campus. Pt states to liaison she has active SI. Pt denies specific thoughts or plan. States she does not feel safe with herself at her apartment. States stressor is times where she is alone. Pt states having continuous SI but it "fluctuates." Pt denying SIB/HI/halluc/delus. Reports SIB in past like cutting and hitting self but has not done so in past 1+ year. Grandiose and manic behaviors. Pt. having racing thoughts. Tangential and flight of ideas. Asking questions about the universe. Often needs redirection when answering questions. Pleasant and cooperative during conversation. Denies previous inpt stays. Stopped taking Lexapro 2 days ago. Lexapro 5mg po daily. Prescriber in [place]. Pt unable to state if she is taking other medications. Pt hinted about taking vitamins but couldn't state which ones. Pt denies hx of medical diagnoses. Denies psych diagnoses but thinks she has undiagnosed ADHD and Bipolar. States sleep has been poor. Appetite has been less but adequate. Denies tobacco, alcohol, other substance use. Denies legal issues. Denies access to firearms/lethal weapons. ROIs signed for Westloisabel (mother), Nini (father), Royer (aunt), and S." Review of the medical record reveals no previous or outside psychiatric records. Review of pertinent labs reveals they are noncontributory except for leukocytosis. A urine toxicology screen was negative for all tested substrates. BAL was <10 mg/dL. screen was negative. Note history as documented above. Pt is (apparently recently) diagnosed with bipolar disorder, with a history of treatment for major depression (escitalopram) that she stopped 2 days prior to presentation. She has had increasingly racing thoughts, decreased sleep of 3-5 hours/night. Since presentation to the ED she has become increasingly manic with rapid speech, flight of ideas, and psychomotor agitation. She has been preoccupied with "portals" and has identified as such a toilet (which she blocked with an entire roll of toilet paper) and a mirror (which she was pounding with her hands at the time I tried to assess her). She called 911 on the unit phone to ask them to put her in touch with the prophet Luis. She stripped off all her clothes several times. Because of her rapidly-escalating gabe and the risk of injury from her pounding on the mirror that she believed was a portal, she was offered haloper idol 10 mg IM with lorazepam 2 mg IM and diphenhydramine 50 mg IM. She enthusiastically accepted this and readily went to the open-door quiet room and curled up on the mattress. She rapidly became drowsy and repeatedly asked if I were Professor Arriaza. As a result of this sedation, my assessment was abbreviated. Physical Exam Psychiatric Orientation: alert, oriented to person, oriented to place, oriented to time and cooperative Apperance: appropriately dressed and appropriately groomed Eye Contact: + fair eye contact Motor Behavior: no abnormal motor movements and + psychomotor agitation (restless, fidgety) Speech: normal rate/rhythm/volume of speech (somewhat abbreviated latency of response, prolonged duration); no pressured speech and no loud speech Affect: + anxious affect Mood: + anxious mood Thought Process: + tangential thought process Thought Content: reality based without delusions Suicidal Thoughts: denies suicidal thoughts, denies suicidal plan and denies suicidal intent Homicidal Thoughts: denies homicidal thoughts Hallucinations: no auditory hallucinations and no visual hallucinations Cognition: recent memory grossly intact, remote memory grossly intact and language grossly intact; + attention not intact (distractible, but improving) Estimated Intelligence: consistent with education level Insight: + fair insight Judgment: + limited judgement Vital Signs (Past 24 Hours) Last Vital Signs Temp 36.8 C 10/28/23 06:34 Pulse 102 H 10/28/23 06:35 Resp 16 10/28/23 06:34 BP 125/86 10/28/23 06:35 Pulse Ox 98 10/24/23 06:00 O2 Del Method Room Air 10/24/23 06:00 See admission H&P and DOD assessment. Principal Diagnosis Bipolar I Disorder, Manic, Severe, with Psychotic Features Psychiatric Data See daily stay summary. In short, safety was maintained and the patient was cooperative with care. Medication changes included stopping escitalopram, starting risperidone and titrating to 1 mg TID and starting divalproex and titrating to 1,000 mg QHS and they tolerated this well. A family session was held and safety plan was completed prior to discharge. 10/27/2023: More manic today. She's been doing jumping jacks during therapy, walking almost constantly, very chatty - not loud or rapid but greatly increased duration - and preoccupied with "connections" and feeling as if her symptoms confer great creativity upon her. Despite this, she tells me she's "been extremely groggy all day" and has been so tired she's "barely able to function". Drapes herself over her bed, shifting poses rapidly with frequent sighs. She eventually guardedly acknowledges "some racing thoughts" but insists that's just because she's "so excited about leaving". Chronology suggests reduction of risperidone from 1 mg TID to 1 mg BID two days ago was premature. Pt guardedly agrees to increase back to 1 mg TID. 10/26/2023: Valproate level this AM (trough) was supratherapeutic 164 ng/mL. While this is very unlikely to be toxic, it exceeds the therapeutic range for bipolar disorder (85-125 ng/mL) by a significant amount. As pt has had 3 days at the same dose prior to sampling, it's reasonably likely to represent her steady- state level. It's likely that reducing the dose by 1/3 will reduce the blood level by roughly 1/3 (though the dose:level curve is not flat) in which case the resulting level should be within the target range. The current blood level could decrease by 24% to 48% and fall within the target range so in my opinion a dose of 1,000 mg/day is likely to be therapeutic. Discussed with pt that she will need a follow-up level in the next few weeks to confirm that. Pt is eager for discharge, though somewhat anxious given her clear recall of how psychotic she was and the degree of her behavioral dyscontrol. Discussed that she has improved markedly and that her history strongly suggests that at baseline she is not neurotypical so even when not having any significant mood symptoms she's still likely to be overwhelmed by certain environmental stimuli or have thoughts or associations that others find odd. Today pt reveals episodes of synesthesia, including smelling green traffic lights as minty or experiencing a dirty bathtub as loud. 10/25/2023: Presents me with several pages of reasoned arguments for why she should be discharged soon. These are well-reasoned, but I reminded pt that we agree about her staying here for the shortest time that's reasonable and that she is improving rapidly, so it's not really necessary to convince me. She is less restless today, less tangential, and less talkative. She reports "great" sleep. Has been participating in groups. Less daytime sleepiness since reduction of risperidone. 10/24/2023: Yesterday evening pt complained of "thick tongue". I was still in the facility and was able to see her. I was unable to detect any dystonia. She full, supple range of motion of neck. Extraocular movements were not limited. She had no stiffness of her jaw nor any difficulty moving it. She did gag each time I asked her to open her mouth widely or to stick out her tongue - says this has always happened for her. She says she has long gotten a "thick tongue" with slurred speech when she gets anxious. She evidences markedly dysarthric speech for a limited portion of the exam (while talking about her history of this) but it resolved completely after about one minute and did not recur. I did not believe this represented medication-induced dystonia. This has not recurred. Pt exhibiting improving insight, able to identify symptoms as manic. Slept well last night, still feeling a bit sleepy so possibly medication effect. Discussed reducing risperidone. Has been participating in groups. Behavior generally appropriate. Does still make some loose associations and report abrupt odd thoughts, chatty but not pressured. 10/23/2023: Substantial improvement. Pt has been speaking about feeling embarrassed about some of the things she did and said while more manic (oddly apologizing for calling a nurse "an sarah" and for asking me if I were "Dumbledore"). She slept 8 hours last night with no additional medication. Shortly before I saw pt today she inadvertently flooded the floor while showering. Staff are completely confident this was unintentional and resulted from her unfamiliarity with the shower layout. She was mortified and became very anxious and was given PRN quetiapine. Over the course of my exam she gradually became somnolent. However, for most of the time she was reasonably well-focused and able to participate in the exam. She says she has been tolerating both the divalproex as its dose has been titrated and the risperidone well and doesn't attribute any side effects to either. She does attribute to them a great deal of improvement - "my mind isn't jumping", e.g. She thinks the quetiapine has been sedating (which is evident) but that it has been very helpful for anxiety. 10/22/2023: Slept much of the time since given IM medication yesterday afternoon. When awake, reported manic, grandiose delusions as well as less clearly-manic and more persecutory beliefs (e.g., in "portals" that somehow pose a risk and must be incapacitated). Initially refused ordered medication this morning but eventually did agree to take them. Tells me that she has had previous somewhat similar but less serious episodes of elevated mood, "jumping thoughts that go 1,000 miles an hour", impulsive behavior, and "masturbating in public" (which she commends as a useful intervention when distracted or anxious). 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 She acknowledges that some of her thoughts "have been crazy". Says her hesitation about medication is because she doesn't "want it all to be taken away". 10/21/2023: Will start divalproex as mood stabilizer likely to be appropriate over the petroleum terminal plant operator, titrate to 1,500 mg/day before checking trough level and further adjustment as needed to achieve blood level in 85-125 ug/mL range. In light of clear need for faster-onset mood stabilization with start risperidone ODT 1 mg TID. Due to evidence of rapid escalation, will provide IM haloperidol 5 mg, lorazepam 2 mg, and diphenhydramine 50 mg Q6H PRN psychosis or gabe. Day of Discharge Assessment Today the patient voices readiness for discharge. They note improvement in mood and deny thoughts to harm self or others. Thoughts remain organized and they are improved from admission. There is no evidence of psychosis. They agree to take mediations as prescribed and keep follow-up appointments. They are stable for discharge to outpatient level of care. Overall I spent a total of 40 minutes on the floor for this discharge including review of chart records, review of test results, direct evaluation of the patient [id number], counseling the patient, reconciling and ordering medication, medication education with the patient, risk assessment, discussion during interdisciplinary treatment rounds, and documentation in the electronic health record. Transition of Care Transition Of Care Record: was reviewed with the patient Advance Directives Advance Directives Information Provided: Yes Advance Directives: No Mental Health Advance Directive: No Advance Directives on File: No Living Will: No Power of Relief Pilot: No Advance Directives Reason:: Declines as Mental Health Visit. Suicide Risk Level Suicide Risk Level Comments: Suicide risk at discharge is deemed low as the patient is no longer requiring 24-hr monitoring, has a safety plan, and is free of suicidal ideation at discharge. Risk Factors Assessment Male: No : No Do You Have Access To A Gun?: No Health Problems: No Mental Health Diagnoses: Yes Previous Attempt: No Previous Psychiatric Hospitalization: No Protective Factors Assessment : No Responsible for Young Children: No Employed: No Tobacco Cessation at Discharge Tobacco Cessation Medication Prescribed at Discharge: Not Applicable/Non-Smoker Total Time Total Time Spent: Greater Than 30 Minutes (40) Total Time Includes: Examination of the patient, Discharge Planning, Medication Reconciliation and As well as (documentation) Discharge Data Lab Results 10/20/23 10/21/23 10/21/23 20:34 00:12 00:34 WBC 15.58 H RBC 4.83 Hgb 14.3 Hct 42.1 MCV 87.2 MCH 29.6 MCHC 34.0 RDW Std Deviation 38.5 RDW Coeff of Divine 12.1 Plt Count 388 MPV 9.1 L Immature Gran % (Auto) 0.6 Neut % (Auto) 74.9 Lymph % (Auto) 17.0 [place] % (Auto) 6.8 Eos % (Auto) 0.3 Baso % (Auto) 0.4 Neut # (Auto) 11.67 H Lymph # (Auto) 2.65 [place] # (Auto) 1.06 H Eos # (Auto) 0.05 Baso # (Auto) 0.06 Immature Gran # (Auto) 0.09 Sodium 139 Potassium 3.6 Chloride 107 Carbon Dioxide 24 Anion Gap 8 BUN 12 Creatinine 0.65 Est Cr Clr Drug Dosing 130.9 Est GFR ( Amer) 145.0 Est GFR (Non-Af Amer) 125.1 BUN/Creatinine Ratio 18.5 Glucose 105 H Calcium 9.6 Total Bilirubin 0.3 AST 15 ALT 6 L Alkaline Phosphatase 61 Total Protein 8.2 Albumin 4.7 Globulin 3.5 Albumin/Globulin Ratio 1.3 TSH 2.952 Urine Color Yellow Urine Appearance Clear Urine pH 5.5 Ur Specific [place] 1.033 H Urine Protein Negative Urine Glucose (UA) Negative Urine Ketones Trace H Urine Blood Negative Urine Nitrite Negative Urine Bilirubin Negative Urine Urobilinogen Negative Ur Leukocyte Esterase Negative POC Ur Test Salicylates < 3.0 L Urine Opiates Screen Neg Ur Methadone, Qual Neg Acetaminophen < 3 L Urine Barbiturates Neg Valproic Acid Ur Phencyclidine (PCP) Neg U Amphetamin/Meth Scrn Neg MDMA (Ecstasy) Screen Neg U Benzodiazepines Scrn Neg Ur Cocaine Metabolite Neg U Marijuana (THC) Screen Neg Ethyl Alcohol mg/dL < 10.0 Adenovirus (PCR) Not Detected B. pertussis DNA (PCR) Not Detected B.parapertussis DNA PCR Not Detected C. pneumoniae DNA (PCR) Not Detected Coronavirus OC43 (PCR) Not Detected Coronavirus HKU1 (PCR) Not Detected Coronavirus 229E (PCR) Not Detected SARS-CoV-2 (PCR) Not Detected Coronavirus NL63 (PCR) Not Detected Human Metapneumovir PCR Not Detected Influenza Type A (PCR) Not Detected Influenza Type B (PCR) Not Detected M. pneumoniae (PCR) Not Detected Parainfluenza 1 (PCR) Not Detected Parainfluenza 2 (PCR) Not Detected Parainfluenza 3 (PCR) Not Detected Parainfluenza 4 (PCR) Not Detected RSV (PCR) Not Detected Entero/Rhino (PCR) Not Detected SARS-CoV-2, RNA, NAAT NEGATIVE 10/21/23 10/26/23 00:36 06:05 WBC RBC Hgb Hct MCV MCH MCHC RDW Std Deviation RDW Coeff of Divine Plt Count MPV Immature Gran % (Auto) Neut % (Auto) Lymph % (Auto) [place] % (Auto) Eos % (Auto) Baso % (Auto) Neut # (Auto) Lymph # (Auto) [place] # (Auto) Eos # (Auto) Baso # (Auto) Immature Gran # (Auto) Sodium Potassium Chloride Carbon Dioxide Anion Gap BUN Creatinine Est Cr Clr Drug Dosing Est GFR ( Amer) Est GFR (Non-Af Amer) BUN/Creatinine Ratio Glucose Calcium Total Bilirubin AST ALT Alkaline Phosphatase Total Protein Albumin Globulin Albumin/Globulin Ratio TSH Urine Color Urine Appearance Urine pH Ur Specific [place] Urine Protein Urine Glucose (UA) Urine Ketones Urine Blood Urine Nitrite Urine Bilirubin Urine Urobilinogen Ur Leukocyte Esterase POC Ur Test NEG Salicylates Urine Opiates Screen Ur Methadone, Qual Acetaminophen Urine Barbiturates Valproic Acid 164 H Ur Phencyclidine (PCP) U Amphetamin/Meth Scrn MDMA (Ecstasy) Screen U Benzodiazepines Scrn Ur Cocaine Metabolite U Marijuana (THC) Screen Ethyl Alcohol mg/dL Adenovirus (PCR) B. pertussis DNA (PCR) B.parapertussis DNA PCR C. pneumoniae DNA (PCR) Coronavirus OC43 (PCR) Coronavirus HKU1 (PCR) Coronavirus 229E (PCR) SARS-CoV-2 (PCR) Coronavirus NL63 (PCR) Human Metapneumovir PCR Influenza Type A (PCR) Influenza Type B (PCR) M. pneumoniae (PCR) Parainfluenza 1 (PCR) Parainfluenza 2 (PCR) Parainfluenza 3 (PCR) Parainfluenza 4 (PCR) RSV (PCR) Entero/Rhino (PCR) SARS-CoV-2, RNA, NAAT Hospital Course (1) Bipolar disorder, current episode manic, severe with psychotic features: (2) Autism spectrum disorder: (3) Attention deficit hyperactivity disorder (ADHD), combined type: Plan 10/27/2023: * continue divalproex 1,000 mg at HS - decreased 09/26/2023, increased 10/23/2023 to TID, increased 10/22/2023 to BID, started 10/21/2023 at 500 mg once daily * increase risperidone back to 1 mg TID - decreased 10/24/2023 to BID, started 10/21/2023 as ODT 1 mg TID * A private room remains medically necessary for the safety of self and others. 10/26/2023: * reduce divalproex 500 mg BID today, 1,000 mg at HS only tomorrow - increased 10/23/2023 to TID, increased 10/22/2023 to BID, started 10/21/2023 at 500 mg once daily * continue risperidone 1 mg BID - decreased 10/24/2023, started 10/21/2023 as ODT 1 mg TID * A private room remains medically necessary for the safety of self and others. * family meeting this afternoon 10/25/2023: * continue divalproex 500 mg TID - increased 10/23/2023, increased 10/22/2023 to BID, started 10/21/2023 at 500 mg once daily * trough valproate level ordered for 10/26/23 * continue risperidone 1 mg BID - decreased 10/24/2023, started 10/21/2023 as ODT 1 mg TID * A private room remains medically necessary for the safety of self and others. 10/24/2023: * continue divalproex 500 mg TID - increased 10/23/2023, increased 10/22/2023 to BID, started 10/21/2023 at 500 mg once daily * trough valproate level ordered for 10/26/23 * change risperidone from ODT to regular tablet, reduce dose to 1 mg BID - started 10/21/2023 as ODT 1 mg TID * for gabe or psychosis, continue haloperidol 5 mg IM, lorazepam 2 mg IM, and diphenhydramine 50 mg IM Q6H PRN gabe or psychosis * A private room remains medically necessary for the safety of self and others. 10/23/2023: * increase divalproex to 500 mg TID - increased 10/22/2023 to BID, started 10/21/2023 at 500 mg once daily * trough valproate level ordered for 10/26/23 * continue risperidone ODT 1 mg TID - started 10/21/2023 * for gabe or psychosis, continue haloperidol 5 mg IM, lorazepam 2 mg IM, and diphenhydramine 50 mg IM Q6H PRN gabe or psychosis * A private room remains medically necessary for the safety of self and others. 10/22/2023: * A private room remains medically necessary for the safety of self and others. * increase divalproex to 500 mg BID today, TID tomorrow - started 10/21/2023 at 500 mg once daily * continue risperidone ODT 1 mg TID - started 10/21/2023 * for gabe or psychosis, continue haloperidol 5 mg IM, lorazepam 2 mg IM, and diphenhydramine 50 mg IM Q6H PRN gabe or psychosis 10/21/2023: The patient was admitted to the [facility] on q15 minute checks (behavioral with suicide precautions) for safety.The patient will participate in group, recreational, and milieu therapies and will be offered additional individual and family sessions as clinically appropriate. * A private room is medically necessary for the safety of self and others. * start divalproex 500 mg once today, BID tomorrow, TID following day * start risperidone ODT 1 mg TID * for gabe or psychosis haloperidol 5 mg IM, lorazepam 2 mg IM, and diphenhydramine 50 mg IM Q6H PRN gabe or psychosis Mental Health & Subst Abuse Tx Psychiatrist Name of Psychiatrist: Roseline Clifford Psychiatrist's Date Of Appointment With Psychiatric Provider: 11/19/22 Time of Appointment with Psychiatrist: 9:30 AM Psychiatric Appointment Comment: [address] [place] [address] Therapist Name of Therapist: Creede - Intake Therapist's Date of Therapist Appointment: 11/13/22 Time of Therapist Appointment: 12:30 PM Therapy Appointment Comment: [facility], [place] [address] Energy Conservation Representative Name of Energy Conservation Representative: Carol Cueva @ [facility]? Post Discharge Appointments Primary Care Physician Name Of Family Doctor/PCP: [facility] Primary Care Provider Appointment Comment: Please follow-up as needed. Smoking Cessation Counseling Tobacco Cessation Medication Prescribed at Discharge: Not Applicable/Non-Smoker Discharge Plan Discharge Items Patient Disposition: Home - Self-Care Reason For Visit: BIPOLAR MANIC Discharge Diagnosis: Bipolar I Disorder, Manic, Severe, with Psychotic Features Activity: Resume your previous activity Non-emergency contact: Primary Care Provider and Psychiatrist Call non-emergency contact if: you have any medication questions and your symptoms worsen Follow-up/Referrals: [facility] [Primary Care Provider] - Diet: Regular Addtl Attending Provider Instructions: SPECIAL CARE INSTRUCTIONS: 1. Follow through with your scheduled aftercare appointments. If unable to keep an appointment, please call to reschedule. 2. Take your medication only as prescribed. Medication should not be changed or stopped without the approval of your doctor. In the event of worsening symptoms or concerns about side effects, contact your doctor immediately. 3. Utilize new healthy coping skills, anger management skills, and stress management skills learned during your hospitalization. Journal feelings and process them with a support person. Identify stressors or situations that may result in relapse, deterioration or inappropriate behaviors and develop a plan to deal with those issues. 4. If your coping skills are ineffective and you are in crisis, contact your outpatient providers for direction. If unable to reach your providers, please call the [facility] CRISIS LINE AT , go to the [facility] walk-in center at [address] [place] [address] A, [place], or go to the closest Emergency Room. 5. Avoid alcohol and un-prescribed drugs. 6. You have been provided with the Mental Health Advance Directives Pamphlet for your review. 7. Your condition is stable for discharge to outpatient level of care, but recovery is an ongoing process. Ifthoughts to harm yourself or others return, follow the safety plan developed during your stay. Planning for a safe return home includes securing weapons. Our treatment team recommends weaponsbe removed from the home until your outpatient provider reassesses your progress. In rare cases where the items themselvescannot be removed, guns and ammunitionshould be secured separatelyand keys stored by a reliable personoutside of the home. If you were admitted on an involuntary commitment, the police or other legal authorities may be involved in this process. AFTERCARE APPOINTMENTS: * Please call your insurance company prior to your scheduled appointment to confirm your aftercare providers are covered. Take your insurance information to your appointments. WHO TO CALL AND WHEN: Medical Emergencies: For questions or emergencies related to your hospital stay, please contact the Inpatient Behavioral Health Unit at [phone]. A licensed clinician is on-call 02/06 for the Behavioral Health Unit for emergencies At any time you feel your situation is an emergency, you may also call 911 immediately. Pending Studies at Discharge: No Stand-Alone Forms: [facility], Smoking Cessation Medications and DC Order Prescriptions: New quetiapine 25 mg Tablet 50 mg PO Q6 PRN (Reason: insomnia or gabe) 30 Days Qty: 3 0RF risperidone 1 mg Tablet 1 mg PO TID 30 Days Qty: 90 0RF divalproex 500 mg Tablet,Delayed Release (Dr/Ec) 1,000 mg PO HS 30 Days Qty: 60 0RF Discontinued escitalopram oxalate [Lexapro] 5 mg Tablet 5 mg PO DAILY Discharge Orders: Discharge Order (Routine); Ordered 10/28/23 Ordered By: Mckinley Seay Admission Data Admit Date/Time: 10/21/23 02:24 Attending Provider: Mckinley Seay Admit Provider: Mckinley Seay Primary Care Provider: [facility] Coding Level of Care Code 08772 D/C day mgmt > 30 min Diagnoses Bipolar disorder, current episode manic, severe with psychotic features F31.2 Autism spectrum disorder F84.0 Attention deficit hyperactivity disorder (ADHD), combined type F90.2 Time Spent (min) 40
== END 2023-10-28 15:45 | disposition home or self-care (01) | DRG 885 ==
LOC: ED 19:49 → 3S 10-21 02:24